=== PATIENT | female | born 1935 | race Two or more races ===

== ENCOUNTER 2016-10-07 21:05 | Inpatient (IN) | payer MEDICAID ==
[~2016-10-07] VITALS: Ht 152.4 cm; Wt 82.9 kg
[~2016-10-07 21:05] MED LIST: ALEN70SO OR; AML5T PO; ASPI81CH43; ATOR20TA50 PO; FURO40TA4 PO; GLIP2.5T28 PO; LISI40TA PO; NIF30XLT PO; PANT40T PO; SUC1LQ PO
[2016-10-07 21:56] LABS: Basophils # (auto) 0 uL; Basophils % (auto) 0.3 % (0.0-2.0); Eosinophils # (auto) 0.1 uL; Eosinophils % (auto) 0.9 % (0.0-7.0); Hematocrit 37.3 % (36.0-46.0); Hemoglobin 12.2 g/dL (12.2-16.2); Lymphocytes # (auto) 1.5 uL; Lymphocytes % (auto) 14.9 % (10.0-50.0); Mean Corpuscular Hemoglobin 31.6 pg (28.0-32.0); Mean Corpuscular Hgb Conc. 32.7 g/dL (32.0-36.0); Mean Corpuscular Volume 96.7 fL (80.0-100.0); Mean Platelet Volume 9.8 fL (7.4-10.4); Monocytes # (auto) 0.5 uL; Monocytes % (auto) 4.8 % (0.0-12.0); Neutrophils # (auto) 7.9 uL; Neutrophils % (auto) 79.1 % (37.0-80.0); Platelet Count (auto) 229 10^3/uL (140-450); Red Cell Distribution Width 13.1 % (11.6-16.0); White Blood Cell 9.9 10^3/uL (4.4-10.8)
[2016-10-07 22:09] LABS: INR 1.02 (0.9-1.15); Partial Thromboplastin Time 25.4 sec (22.64-33.71); Prothrombin Time 10.5 sec (9.37-12.3)
[2016-10-07 22:28] LABS: Albumin 2.8 g/dL (3.4-5.0); Alkaline Phosphatase 95 U/L (45-117); Amylase 133 U/L (25-115); Anion Gap 13 (5-15); Aspartate Aminotransferase 16 U/L (15-37); BUN/Creatinine Ratio 19.9; Bilirubin, Total 0.2 mg/dL (0.2-1.0); Blood Urea Nitrogen 41 mg/dL (7-18); Calcium 8.5 mg/dL (8.5-10.1); Carbon Dioxide 24 mmol/L (21-32); Chloride 106 mmol/L (98-107); GFR African American 30 mL/min; GFR Non-African American 25 mL/min; Glucose 213 mg/dL (74-106); Potassium 4.1 mmol/L (3.5-5.1); Sodium 143 mmol/L (136-145); Total Protein 6.7 g/dL (6.4-8.2)
[2016-10-08] MEDS ORDERED: FLEET ENEMA(ADULT) 135 ML PR ONE (07:00)
[2016-10-08] MEDS ORDERED: DEXTROSE (50%) 50ML SYRG IV PRN (07:00)
[2016-10-08] MEDS ORDERED: ACETAMINOPHEN 325 MG TAB PO PRN (07:00)
[2016-10-08] MEDS: SODIUM CHLORIDE 0.9% 1,000 ML IV SCH ×2 (07:08→21:36)
[2016-10-08] MEDS ORDERED: AML5T PO ×2 (07:08→10:53)
[2016-10-08] MEDS: glipiZIDE 5 MG TAB PO SCH (08:14)
[2016-10-08] MEDS ORDERED: amLODIPine BESYLATE 5 MG TAB PO SCH (10:00)
[2016-10-08] MEDS ORDERED: PANTOPRAZOLE 40 MG TAB PO SCH (10:00)
[2016-10-08] MEDS: NIFEdipine ER 30 MG TAB PO SCH (10:30)
[2016-10-08] MEDS: ENOXAPARIN SOD 30 MG/0.3 ML SYRINGE SC SCH (10:30)
[2016-10-08] MEDS: FUROSEMIDE 40 MG TAB PO SCH (10:30)
[2016-10-08] MEDS: LISINOPRIL 20 MG TAB PO SCH (10:30)
[2016-10-08] MEDS: ACCU-CHEK COMFORT CURVE STRIP VI SCH ×2 (12:07→17:10)
[2016-10-08] MEDS: InsuLIN REG 1unit/0.01ml Soln (100units/ml) SC SCH ×2 (12:07→17:10)
[2016-10-08 16:28] VITALS: BP 142/61
[2016-10-08 17:09] LABS: Urine RBC None Seen /hpf (0 - 4)
[2016-10-08 17:38] LABS: Urine Bilirubin Negative (Negative); Urine Blood Negative /uL (Negative); Urine Color Yellow (Yellow); Urine Glucose TRACE mg/dL (Normal); Urine Hyaline Cast FEW /lpf (0 - 2); Urine Ketone Negative (Negative); Urine Mucus FEW (None Seen); Urine Nitrite Negative (Negative); Urine Squamous Epithelial Cell FEW /hpf (<5); Urine Urobilinogen Normal (Negative); Urine pH 5.5 (5.0-8.0)
[2016-10-08] MEDS: Boost Glucose Control 8 Ounces PO SCH ×2 (18:00→21:57)
[2016-10-08 20:53] VITALS: BP 142/67
[2016-10-08] MEDS: PANTOPRAZOLE 40 MG TAB PO SCH (21:57)
[2016-10-08] MEDS: ATORVASTATIN 20 MG TAB PO SCH (21:57)
[2016-10-09] MEDS: ACCU-CHEK COMFORT CURVE STRIP VI SCH ×4 (00:10→17:07)
[2016-10-09 05:17] VITALS: BP 135/57
[2016-10-09] MEDS: InsuLIN REG 1unit/0.01ml Soln (100units/ml) SC SCH ×4 (06:44→17:07)
[2016-10-09] MEDS: Boost Glucose Control 8 Ounces PO SCH ×4 (06:44→22:00)
[2016-10-09] MEDS: glipiZIDE 5 MG TAB PO SCH (07:04)
[2016-10-09 07:24] LABS: Basophils # (auto) 0 uL; Basophils % (auto) 0.1 % (0.0-2.0); Eosinophils # (auto) 0.1 uL; Eosinophils % (auto) 1.8 % (0.0-7.0); Lymphocytes # (auto) 1.1 uL; Lymphocytes % (auto) 20.3 % (10.0-50.0); Mean Corpuscular Hemoglobin 32.1 pg (28.0-32.0); Mean Corpuscular Hgb Conc. 33.5 g/dL (32.0-36.0); Mean Corpuscular Volume 95.9 fL (80.0-100.0); Mean Platelet Volume 9.7 fL (7.4-10.4); Monocytes # (auto) 0.4 uL; Monocytes % (auto) 6.8 % (0.0-12.0); Platelet Count (auto) 129 10^3/uL (140-450); Red Cell Distribution Width 13.4 % (11.6-16.0); White Blood Cell 5.6 10^3/uL (4.4-10.8)
[2016-10-09 07:25] LABS: Albumin 2.2 g/dL (3.4-5.0); BUN/Creatinine Ratio 25.2; Bilirubin, Total 0.3 mg/dL (0.2-1.0); Calcium 8.2 mg/dL (8.5-10.1); Potassium 3.8 mmol/L (3.5-5.1); Total Protein 5.2 g/dL (6.4-8.2)
[2016-10-09 08:00] VITALS: BP_SYST 153; BP_SYST 166; BP_DIAS 55; BP_DIAS 61
[2016-10-09] MEDS: LISINOPRIL 20 MG TAB PO SCH (10:29)
[2016-10-09] MEDS: PANTOPRAZOLE 40 MG TAB PO SCH ×2 (10:30→22:39)
[2016-10-09] MEDS: FUROSEMIDE 40 MG TAB PO SCH (10:30)
[2016-10-09] MEDS: NIFEdipine ER 30 MG TAB PO SCH (10:30)
[2016-10-09] MEDS: ENOXAPARIN SOD 30 MG/0.3 ML SYRINGE SC SCH (10:30)
[2016-10-09 12:30] VITALS: BP_SYST 174; BP_SYST 183; BP_DIAS 61; BP_DIAS 67
[2016-10-09] MEDS: cloNIDine HCL 0.1 MG TAB PO PRN (16:27)
[2016-10-09] MEDS: SODIUM CHLORIDE 0.9% 1,000 ML IV SCH (16:28)
[2016-10-09 17:00] VITALS: BP 175/68
[2016-10-09 20:00] VITALS: BP 176/63
[2016-10-09 22:00] VITALS: BP 176/63
[2016-10-09] MEDS: ATORVASTATIN 20 MG TAB PO SCH (22:39)
[2016-10-09] MEDS: LACTULOSE 20Gm/30ML SOLN PO PRN (22:41)
[2016-10-10] MEDS: ACCU-CHEK COMFORT CURVE STRIP VI SCH ×4 (00:19→18:28)
[2016-10-10] MEDS: InsuLIN REG 1unit/0.01ml Soln (100units/ml) SC SCH ×4 (00:25→18:00)
[2016-10-10 05:30] VITALS: BP 138/59
[2016-10-10] MEDS: Boost Glucose Control 8 Ounces PO SCH ×4 (06:00→22:00)
[2016-10-10 06:20] LABS: Basophils # (auto) 0 uL; Basophils % (auto) 0.5 % (0.0-2.0); Eosinophils # (auto) 0.1 uL; Eosinophils % (auto) 2.3 % (0.0-7.0); Hematocrit 29.8 % (36.0-46.0); Hemoglobin 9.9 g/dL (12.2-16.2); Lymphocytes # (auto) 1.3 uL; Mean Corpuscular Hemoglobin 31.7 pg (28.0-32.0); Mean Corpuscular Hgb Conc. 33.2 g/dL (32.0-36.0); Mean Corpuscular Volume 95.6 fL (80.0-100.0); Mean Platelet Volume 10.1 fL (7.4-10.4); Monocytes # (auto) 0.4 uL; Monocytes % (auto) 7.3 % (0.0-12.0); Neutrophils # (auto) 3.3 uL; Neutrophils % (auto) 64.9 % (37.0-80.0); Platelet Count (auto) 132 10^3/uL (140-450); Red Cell Distribution Width 13.6 % (11.6-16.0); White Blood Cell 5.1 10^3/uL (4.4-10.8)
[2016-10-10 06:49] LABS: Chloride 110 mmol/L (98-107); Potassium 3.5 mmol/L (3.5-5.1); Sodium 145 mmol/L (136-145)
[2016-10-10 07:04] LABS: Albumin 2.1 g/dL (3.4-5.0); Alkaline Phosphatase 72 U/L (45-117); Anion Gap 9 (5-15); Aspartate Aminotransferase 9 U/L (15-37); BUN/Creatinine Ratio 22.1; Bilirubin, Total < 0.1 mg/dL (0.2-1.0); Blood Urea Nitrogen 33 mg/dL (7-18); Calcium 7.8 mg/dL (8.5-10.1); Carbon Dioxide 26 mmol/L (21-32); GFR African American 43 mL/min; GFR Non-African American 36 mL/min; Glucose 83 mg/dL (74-106); Total Protein 5.1 g/dL (6.4-8.2)
[2016-10-10] MEDS: glipiZIDE 5 MG TAB PO SCH (07:08)
[2016-10-10] MEDS: SODIUM CHLORIDE 0.9% 1,000 ML IV SCH (07:57)
[2016-10-10 08:00] VITALS: BP 137/69
[2016-10-10 09:12] VITALS: BP 156/69
[2016-10-10] MEDS: ENOXAPARIN SOD 30 MG/0.3 ML SYRINGE SC SCH (10:00)
[2016-10-10] MEDS: PANTOPRAZOLE 40 MG TAB PO SCH ×2 (10:00→21:55)
[2016-10-10] MEDS: LISINOPRIL 20 MG TAB PO SCH (10:00)
[2016-10-10] MEDS: FUROSEMIDE 40 MG TAB PO SCH (10:00)
[2016-10-10] MEDS: NIFEdipine ER 30 MG TAB PO SCH (10:00)
[2016-10-10] MEDS: ONDANSETRON HCL 4 MG/2 ML VIAL IV PRN (10:50)
[2016-10-10] MEDS: HYDROcodone-ACET 5/325MG TAB PO PRN ×3 (12:55→23:03)
[2016-10-10] MEDS ORDERED: MORPHINE SULF INJ 2 MG/ML SYRINGE 1ML ONE (15:39)
[2016-10-10 16:04] VITALS: BP 111/56
[2016-10-10 20:41] VITALS: BP 135/50
[2016-10-10] MEDS: LACTULOSE 20Gm/30ML SOLN PO PRN (21:55)
[2016-10-10] MEDS: ATORVASTATIN 20 MG TAB PO SCH (21:56)
[2016-10-11] VITALS (7 sets, daily range): BP systolic 78–161; BP diastolic 34–68
[2016-10-11] MEDS: SODIUM CHLORIDE 0.9% 1,000 ML IV SCH ×2 (01:26→17:40)
[2016-10-11] MEDS: ONDANSETRON HCL 4 MG/2 ML VIAL IV PRN ×3 (05:00→16:41)
[2016-10-11] MEDS: MORPHINE SULF INJ 2 MG/ML SYRINGE 1ML IV PRN ×4 (05:00→21:28)
[2016-10-11] MEDS: cloNIDine HCL 0.1 MG TAB PO PRN (05:01)
[2016-10-11] MEDS: ACCU-CHEK COMFORT CURVE STRIP VI SCH ×4 (06:00→17:39)
[2016-10-11] MEDS: InsuLIN REG 1unit/0.01ml Soln (100units/ml) SC SCH ×4 (06:00→17:39)
[2016-10-11] MEDS: Boost Glucose Control 8 Ounces PO SCH ×4 (06:00→22:00)
[2016-10-11 06:27] LABS: Basophils # (auto) 0 uL; Eosinophils # (auto) 0 uL; Hematocrit 33.7 % (36.0-46.0); Hemoglobin 11.4 g/dL (12.2-16.2); Lymphocytes # (auto) 0.9 uL; Lymphocytes % (auto) 5.6 % (10.0-50.0); Mean Corpuscular Hemoglobin 32.5 pg (28.0-32.0); Mean Corpuscular Hgb Conc. 33.7 g/dL (32.0-36.0); Mean Corpuscular Volume 96.4 fL (80.0-100.0); Monocytes # (auto) 0.5 uL; Monocytes % (auto) 3.3 % (0.0-12.0); Neutrophils # (auto) 14.9 uL; Neutrophils % (auto) 91.1 % (37.0-80.0); Platelet Count (auto) 181 10^3/uL (140-450); Red Cell Distribution Width 13.5 % (11.6-16.0); White Blood Cell 16.4 10^3/uL (4.4-10.8)
[2016-10-11 06:57] LABS: Potassium 3.7 mmol/L (3.5-5.1)
[2016-10-11] MEDS: glipiZIDE 5 MG TAB PO SCH (07:00)
[2016-10-11 07:02] LABS: Albumin 2.4 g/dL (3.4-5.0); BUN/Creatinine Ratio 20.2; Calcium 8.2 mg/dL (8.5-10.1)
[2016-10-11 07:05] LABS: Bilirubin, Total 0.4 mg/dL (0.2-1.0); Total Protein 5.9 g/dL (6.4-8.2)
[2016-10-11] MEDS: FUROSEMIDE 40 MG TAB PO SCH (10:00)
[2016-10-11] MEDS: NIFEdipine ER 30 MG TAB PO SCH (10:00)
[2016-10-11] MEDS: PANTOPRAZOLE 40 MG TAB PO SCH ×2 (10:21→22:00)
[2016-10-11] MEDS: LISINOPRIL 20 MG TAB PO SCH (10:22)
[2016-10-11] MEDS: ENOXAPARIN SOD 30 MG/0.3 ML SYRINGE SC SCH (10:22)
[2016-10-11] MEDS: HYDROcodone-ACET 5/325MG TAB PO PRN (14:15)
[2016-10-11] MEDS ORDERED: VANCOMYCIN 750 MG in D5W 5% 250 ML IV SCH (17:00)
[2016-10-11] MEDS ORDERED: PIPERACILLIN-TAZOB 2.25GM 50 ML IV ONE (18:00)
[2016-10-11] MEDS: LACTULOSE 20Gm/30ML SOLN PO PRN (18:11)
[2016-10-11] MEDS ORDERED: VANCOMYCIN 1GM/250ML D5W 250 ML IV ONE (18:15)
[2016-10-11 19:33] LABS: Urine Bilirubin Negative (Negative); Urine Blood Negative /uL (Negative); Urine Color Yellow (Yellow); Urine Ketone Negative (Negative); Urine Nitrite Negative (Negative); Urine RBC 1 /hpf (0 - 4); Urine Squamous Epithelial Cell FEW /hpf (<5); Urine Urobilinogen Normal (Negative); Urine pH 5.5 (5.0-8.0)
[2016-10-11 19:36] LABS: Urine Glucose 1+ mg/dL (Normal)
[2016-10-11] MEDS: ATORVASTATIN 20 MG TAB PO SCH (22:00)
[2016-10-12] MEDS: ACCU-CHEK COMFORT CURVE STRIP VI SCH ×5 (00:26→22:01)
[2016-10-12] MEDS: InsuLIN REG 1unit/0.01ml Soln (100units/ml) SC SCH ×6 (00:37→22:17)
[2016-10-12] MEDS: PIPERACILLIN-TAZOB 2.25GM 50 ML IV SCH ×4 (00:51→17:51)
[2016-10-12] MEDS: ONDANSETRON HCL 4 MG/2 ML VIAL IV PRN ×3 (04:02→12:58)
[2016-10-12] MEDS: MORPHINE SULF INJ 2 MG/ML SYRINGE 1ML IV PRN ×2 (04:02→11:19)
[2016-10-12 05:39] VITALS: BP 155/74
[2016-10-12 05:43] LABS: Hematocrit 34.9 % (36.0-46.0); Hemoglobin 11.4 g/dL (12.2-16.2); Mean Corpuscular Hemoglobin 31.8 pg (28.0-32.0); Mean Corpuscular Hgb Conc. 32.8 g/dL (32.0-36.0); Mean Corpuscular Volume 96.8 fL (80.0-100.0); Mean Platelet Volume 10.4 fL (7.4-10.4); Platelet Count (auto) 174 10^3/uL (140-450); Red Cell Distribution Width 13.5 % (11.6-16.0); SUSPECT VIEW TRANSMISSION; White Blood Cell 16.9 10^3/uL (4.4-10.8)
[2016-10-12 06:00] LABS: Promyelocytes % 0; Reactive Lymphocytes 0
[2016-10-12] MEDS: Boost Glucose Control 8 Ounces PO SCH ×4 (06:00→22:00)
[2016-10-12] MEDS ORDERED: VANCOMYCIN PER PHARMACY 0 MG IV SCH (06:00)
[2016-10-12 06:03] LABS: BUN/Creatinine Ratio 21.6; Magnesium 1.7 mg/dL (1.6-2.6); Potassium 4.1 mmol/L (3.5-5.1)
[2016-10-12] MEDS: glipiZIDE 5 MG TAB PO SCH (06:12)
[2016-10-12 06:24] LABS: Hypersegmented Neutrophils Present; Metamyelocytes % 1; Myelocytes % 1
[2016-10-12 06:25] LABS: Platelet Estimate Adequate; RBC Morphology Normal
[2016-10-12] MEDS: HYDROcodone-ACET 5/325MG TAB PO PRN ×2 (07:48→18:47)
[2016-10-12 08:00] VITALS: BP 148/64
[2016-10-12] MEDS ORDERED: NALOXONE HCL 0.4 MG/ML VIAL ONE (08:15)
[2016-10-12] MEDS ORDERED: FLUMAZENIL 0.1 MG/ML INJ 10ML MDV IV ONE (08:15)
[2016-10-12] MEDS ORDERED: LIDOCAINE VISCOUS 2% 15ML UD ONE (08:15)
[2016-10-12] MEDS ORDERED: SODIUM CHLORIDE LOCK 10 ML ONE (08:15)
[2016-10-12] MEDS ORDERED: diphenhdrAMINE HCL 50 MG/1 ML VL ONE (08:16)
[2016-10-12] MEDS ORDERED: MIDAZOLAM HCL 5 MG/ML-1ML VIAL ONE (08:16)
[2016-10-12] MEDS ORDERED: fentaNYL CITRATE 100 MCG/2 ML VL ONE (08:16)
[2016-10-12 09:00] VITALS: BP 148/64
[2016-10-12] MEDS: PANTOPRAZOLE 40 MG TAB PO SCH ×2 (10:04→22:01)
[2016-10-12] MEDS: NIFEdipine ER 30 MG TAB PO SCH (10:04)
[2016-10-12] MEDS: LISINOPRIL 20 MG TAB PO SCH (10:05)
[2016-10-12] MEDS: ENOXAPARIN SOD 30 MG/0.3 ML SYRINGE SC SCH (10:05)
[2016-10-12] MEDS: SODIUM CHLORIDE 0.9% 1,000 ML IV SCH (10:55)
[2016-10-12 12:47] VITALS: BP 152/73
[2016-10-12] MEDS ORDERED: LIDOCAINE VISCOUS 2% 15ML UD MT ONE (15:14)
[2016-10-12] MEDS ORDERED: MIDAZOLAM HCL 5 MG/ML-1ML VIAL IV ONE ×6 (15:17→15:52)
[2016-10-12] MEDS ORDERED: fentaNYL CITRATE 100 MCG/2 ML VL IV ONE ×5 (15:17→15:46)
[2016-10-12] MEDS ORDERED: diphenhdrAMINE HCL 50 MG/1 ML VL IV ONE ×2 (15:47→15:52)
[2016-10-12] MEDS: METOCLOPRAMIDE HCL 5MG/ml INJ 2ml VIAL IV SCH ×2 (16:21→22:01)
[2016-10-12 16:58] VITALS: BP 120/71
[2016-10-12] MEDS ORDERED: VANCOMYCIN 1GM/250ML D5W 250 ML IV SCH (17:00)
[2016-10-12] MEDS: SUCRALFATE 1 GM/10 ML ORAL SUSP PO SCH ×2 (17:09→22:01)
[2016-10-12 22:00] VITALS: BP 137/65
[2016-10-12] MEDS: ATORVASTATIN 20 MG TAB PO SCH (22:01)
[2016-10-13] MEDS: PIPERACILLIN-TAZOB 2.25GM 50 ML IV SCH ×2 (00:53→05:32)
[2016-10-13] MEDS: SODIUM CHLORIDE 0.9% 1,000 ML IV SCH (03:26)
[2016-10-13] MEDS: HYDROcodone-ACET 5/325MG TAB PO PRN (04:24)
[2016-10-13] MEDS: METOCLOPRAMIDE HCL 5MG/ml INJ 2ml VIAL IV SCH ×2 (05:39→13:58)
[2016-10-13 05:44] LABS: Hematocrit 32.7 % (36.0-46.0); Mean Corpuscular Hemoglobin 32.2 pg (28.0-32.0); Mean Corpuscular Hgb Conc. 33.5 g/dL (32.0-36.0); Mean Corpuscular Volume 96.1 fL (80.0-100.0); Mean Platelet Volume 10.7 fL (7.4-10.4); Platelet Count (auto) 178 10^3/uL (140-450); Red Cell Distribution Width 13.7 % (11.6-16.0); SUSPECT VIEW TRANSMISSION; White Blood Cell 9.4 10^3/uL (4.4-10.8)
[2016-10-13] MEDS: ACCU-CHEK COMFORT CURVE STRIP VI SCH ×3 (05:49→18:00)
[2016-10-13] MEDS: Boost Glucose Control 8 Ounces PO SCH ×4 (05:49→21:43)
[2016-10-13] MEDS: InsuLIN REG 1unit/0.01ml Soln (100units/ml) SC SCH ×3 (05:53→18:00)
[2016-10-13 05:56] LABS: Prothrombin Time 12.2 sec (9.37-12.3)
[2016-10-13 06:02] LABS: Albumin 1.9 g/dL (3.4-5.0); Calcium 7.8 mg/dL (8.5-10.1); Magnesium 1.7 mg/dL (1.6-2.6); Potassium 4.2 mmol/L (3.5-5.1)
[2016-10-13 06:07] LABS: BUN/Creatinine Ratio 22.3; Bilirubin, Total 0.5 mg/dL (0.2-1.0); Total Protein 5.4 g/dL (6.4-8.2)
[2016-10-13 06:11] VITALS: BP 139/59
[2016-10-13 06:14] LABS: Metamyelocytes % 0; Myelocytes % 0; Promyelocytes % 0; Reactive Lymphocytes 0
[2016-10-13 06:35] LABS: INR 1.18 (0.9-1.15)
[2016-10-13] MEDS: SUCRALFATE 1 GM/10 ML ORAL SUSP PO SCH ×4 (06:40→21:43)
[2016-10-13] MEDS: glipiZIDE 5 MG TAB PO SCH (06:40)
[2016-10-13 07:57] LABS: Platelet Estimate Adequate; RBC Morphology Normal
[2016-10-13 09:00] VITALS: BP 117/58
[2016-10-13] MEDS: MORPHINE SULF INJ 2 MG/ML SYRINGE 1ML IV PRN (09:00)
[2016-10-13] MEDS: ENOXAPARIN SOD 30 MG/0.3 ML SYRINGE SC SCH (09:09)
[2016-10-13] MEDS: LACTULOSE 20Gm/30ML SOLN PO PRN (09:09)
[2016-10-13] MEDS: PANTOPRAZOLE 40 MG TAB PO SCH ×2 (09:09→21:43)
[2016-10-13] MEDS: LISINOPRIL 20 MG TAB PO SCH (09:10)
[2016-10-13] MEDS: NIFEdipine ER 30 MG TAB PO SCH (09:10)
[2016-10-13] MEDS ORDERED: SODIUM CHLORIDE 0.9% 1,000 ML IV ONE (10:30)
[2016-10-13] MEDS: cefTRIAXone 1GM/50ML D5W 50 ML IV SCH (10:48)
[2016-10-13] MEDS: LACTULOSE 20Gm/30ML SOLN PO SCH ×2 (11:58→17:44)
[2016-10-13 13:02] VITALS: BP 116/51
[2016-10-13] MEDS ORDERED: SOD CHL 0.9%/ KCL 20MEQ 1,000 ML IV ONE (15:00)
[2016-10-13] MEDS ORDERED: GASTROGRAFIN 120 ML SOL ONE (15:15)
[2016-10-13 17:00] VITALS: BP 125/57
[2016-10-13 20:00] VITALS: BP 139/54
[2016-10-13] MEDS: ATORVASTATIN 20 MG TAB PO SCH (21:43)
[2016-10-13 22:00] VITALS: BP 139/54
[2016-10-14] VITALS (15 sets, daily range): BP systolic 104–136; BP diastolic 51–62
[2016-10-14] MEDS: ACCU-CHEK COMFORT CURVE STRIP VI SCH ×4 (00:25→18:00)
[2016-10-14] MEDS: LACTULOSE 20Gm/30ML SOLN PO SCH ×4 (05:51→18:00)
[2016-10-14] MEDS: glipiZIDE 5 MG TAB PO SCH (05:52)
[2016-10-14] MEDS: InsuLIN REG 1unit/0.01ml Soln (100units/ml) SC SCH ×4 (05:52→18:00)
[2016-10-14] MEDS: Boost Glucose Control 8 Ounces PO SCH ×4 (05:52→22:00)
[2016-10-14 06:09] LABS: BUN/Creatinine Ratio 19.5; Calcium 7.8 mg/dL (8.5-10.1); Potassium 4.3 mmol/L (3.5-5.1)
[2016-10-14] MEDS: SUCRALFATE 1 GM/10 ML ORAL SUSP PO SCH (06:20)
[2016-10-14] MEDS: ENOXAPARIN SOD 30 MG/0.3 ML SYRINGE SC SCH (09:13)
[2016-10-14] MEDS: SODIUM CHLORIDE 0.9% 1,000 ML IV SCH (09:13)
[2016-10-14] MEDS: PANTOPRAZOLE 40 MG TAB PO SCH (09:13)
[2016-10-14] MEDS: HYDROmorphone HCL 2 MG/ML VL IV PRN (09:15)
[2016-10-14] MEDS: cefTRIAXone 1GM/50ML D5W 50 ML IV SCH (09:55)
[2016-10-14 10:07] LABS: Urine Bilirubin Negative (Negative); Urine Blood Negative /uL (Negative); Urine Color Yellow (Yellow); Urine Glucose TRACE mg/dL (Normal); Urine Ketone Negative (Negative); Urine Nitrite Negative (Negative); Urine RBC 4 /hpf (0 - 4); Urine Squamous Epithelial Cell FEW /hpf (<5); Urine Urobilinogen Normal (Negative)
[2016-10-14] MEDS ORDERED: LEVOFLOXACIN 500MG 100 ML IV ONE (10:15)
[2016-10-14] MEDS ORDERED: NITROGLYCERIN 0.4 MG SL TAB SL PRN ×2 (10:30)
[2016-10-14] MEDS ORDERED: MORPHINE SULF INJ 2 MG/ML SYRINGE 1ML IV PRN ×2 (10:30)
[2016-10-14 12:43] LABS: Hematocrit 31.1 % (36.0-46.0); Hemoglobin 10.5 g/dL (12.2-16.2); Mean Corpuscular Hemoglobin 32.3 pg (28.0-32.0); Mean Corpuscular Hgb Conc. 33.8 g/dL (32.0-36.0); Mean Corpuscular Volume 95.6 fL (80.0-100.0); Mean Platelet Volume 10.4 fL (7.4-10.4); Platelet Count (auto) 172 10^3/uL (140-450); Red Cell Distribution Width 14.1 % (11.6-16.0); SUSPECT VIEW TRANSMISSION; White Blood Cell 12.9 10^3/uL (4.4-10.8)
[2016-10-14 12:48] LABS: Metamyelocytes % 0; Myelocytes % 0; Promyelocytes % 0; Reactive Lymphocytes 0
[2016-10-14] MEDS ORDERED: SODIUM CHLORIDE 0.9% 500 ML IV ONE (13:30)
[2016-10-14 13:52] LABS: Platelet Estimate Adequate; RBC Morphology Normal
[2016-10-14] MEDS ORDERED: SODIUM CHLOR 0.9% PF (SALINE LOCK) 10ML VIAL IV SCH (14:00)
[2016-10-14] MEDS: metroNIDAZOLE 500MG/100ML 100 ML IV SCH ×3 (15:03→23:06)
[2016-10-14] MEDS ORDERED: PPN PER PHARMACY 0 ML IV SCH (15:45)
[2016-10-14] MEDS ORDERED: fentaNYL CITRATE 100 MCG/2 ML VL ONE ×3 (15:51→19:07)
[2016-10-14] MEDS ORDERED: ETOMIDATE (2MG/ML) 20ML VIAL IV ONE (15:52)
[2016-10-14] MEDS ORDERED: MIDAZOLAM HCL 1MG/1ML-2 ML VIAL ONE ×2 (15:52→19:11)
[2016-10-14] MEDS ORDERED: DEXAMETHASONE SOD PHOS 10MG/1ML VIAL INJ ONE (15:52)
[2016-10-14] MEDS ORDERED: KETOROLAC TROMETH 60MG/2ML VIAL IM ONE (15:52)
[2016-10-14] MEDS ORDERED: ONDANSETRON HCL 4 MG/2 ML VIAL ONE (15:52)
[2016-10-14] MEDS ORDERED: ROCURONIUM 10MG/ML 10ML VIAL IV ONE (15:53)
[2016-10-14] MEDS ORDERED: POVIDONE IODINE 10 % TOPICAL OINT 30GM TOP ONE (15:55)
[2016-10-14] MEDS ORDERED: ceFAZolin 1GM VL ONE (15:55)
[2016-10-14] MEDS ORDERED: ALBUMIN 5% 250 ML IV ONE (16:01)
[2016-10-14] MEDS ORDERED: FUROSEMIDE 20 MG/2 ML VIAL IV ONE (17:30)
[2016-10-14] MEDS ORDERED: cefTRIAXone SOD 1,000 MG VL ONE (17:38)
[2016-10-14] MEDS ORDERED: SODIUM CHLORIDE 0.9% 1,000 ML IV SCH (20:00)
[2016-10-14] MEDS ORDERED: AMINO ACID INFUSION IN D10W 1,000 ML IV ONE (20:00)
[2016-10-14] MEDS: ATORVASTATIN 20 MG TAB PO SCH (22:00)
[2016-10-15] VITALS (54 sets, daily range): BP systolic 97–149; BP diastolic 6–98
[2016-10-15] MEDS ORDERED: SODIUM BICARBONATE 8.4 % INJ 50ML VIAL IV ONE ×2 (01:00→01:01)
[2016-10-15] MEDS: SODIUM CHLORIDE 0.9% 1,000 ML IV SCH (01:27)
[2016-10-15] MEDS: SODIUM BICARBONATE 50ML VIAL 50 ML in SOD CHL 0.45% 1,000 ML IV SCH ×3 (01:28→01:31)
[2016-10-15] MEDS: HYDROmorphone HCL 2 MG/ML VL IV PRN ×5 (01:44→22:48)
[2016-10-15 03:50] LABS: Basophils # (auto) 0 uL; Eosinophils # (auto) 0 uL; Hematocrit 33.9 % (36.0-46.0); Hemoglobin 11.1 g/dL (12.2-16.2); Lymphocytes # (auto) 0.2 uL; Mean Corpuscular Hemoglobin 30.9 pg (28.0-32.0); Mean Corpuscular Hgb Conc. 32.8 g/dL (32.0-36.0); Mean Corpuscular Volume 94.3 fL (80.0-100.0); Mean Platelet Volume 10.2 fL (7.4-10.4); Monocytes # (auto) 0.1 uL; Monocytes % (auto) 1.6 % (0.0-12.0); Neutrophils # (auto) 7.9 uL; Neutrophils % (auto) 96.4 % (37.0-80.0); Platelet Count (auto) 128 10^3/uL (140-450); Red Cell Distribution Width 16.3 % (11.6-16.0); SUSPECT VIEW TRANSMISSION; White Blood Cell 8.2 10^3/uL (4.4-10.8)
[2016-10-15 04:17] LABS: Albumin 1.6 g/dL (3.4-5.0); BUN/Creatinine Ratio 19.9; Bilirubin, Total 0.3 mg/dL (0.2-1.0); Calcium 7.2 mg/dL (8.5-10.1); Phosphorus 6.3 mg/dL (2.5-4.90); Potassium 4.9 mmol/L (3.5-5.1)
[2016-10-15] MEDS: InsuLIN REG 1unit/0.01ml Soln (100units/ml) SC SCH ×4 (05:09→17:52)
[2016-10-15] MEDS: LACTULOSE 20Gm/30ML SOLN PO SCH ×2 (05:12)
[2016-10-15] MEDS: Boost Glucose Control 8 Ounces PO SCH (05:13)
[2016-10-15] MEDS: ACCU-CHEK COMFORT CURVE STRIP VI SCH ×4 (05:13→17:44)
[2016-10-15] MEDS: LEVOFLOXACIN 250MG 50 ML IV SCH (10:50)
[2016-10-15] MEDS ORDERED: LORazepam 2MG/ML-1ML VIAL ONE (11:06)
[2016-10-15] MEDS: PANTOPRAZOLE SODIUM 40 MG/10 ML VIAL IV SCH ×2 (12:10→22:47)
[2016-10-15] MEDS ORDERED: LIDOCAINE 1% HCL (LOCAL ANESTH.) INJ 20ML MDV ID ONE (12:15)
[2016-10-15] MEDS: metroNIDAZOLE 500MG/100ML 100 ML IV SCH ×2 (14:14→22:47)
[2016-10-15] MEDS: LORazepam 2MG/ML-1ML VIAL IV PRN ×2 (18:15→22:47)
[2016-10-15] MEDS ORDERED: SODIUM CHLORIDE 0.9% 1,000 ML IV SCH (20:00)
[2016-10-15] MEDS ORDERED: CLINIMIX PER PHARMACY IV NR ×6 (20:00)
[2016-10-15] MEDS: SODIUM CHLOR 0.9% PF (SALINE LOCK) 10ML VIAL IV SCH (22:00)
[2016-10-16] VITALS (35 sets, daily range): BP systolic 117–181; BP diastolic 51–82
[2016-10-16] MEDS: InsuLIN REG 1unit/0.01ml Soln (100units/ml) SC SCH ×4 (00:23→17:13)
[2016-10-16] MEDS: ACCU-CHEK COMFORT CURVE STRIP VI SCH ×4 (00:26→17:13)
[2016-10-16 04:24] LABS: Basophils # (auto) 0 uL; Basophils % (auto) 0.1 % (0.0-2.0); Eosinophils # (auto) 0 uL; Hematocrit 34.4 % (36.0-46.0); Hemoglobin 11.4 g/dL (12.2-16.2); Lymphocytes # (auto) 0.4 uL; Lymphocytes % (auto) 3.6 % (10.0-50.0); Mean Corpuscular Hemoglobin 31.1 pg (28.0-32.0); Mean Corpuscular Hgb Conc. 33.3 g/dL (32.0-36.0); Mean Corpuscular Volume 93.4 fL (80.0-100.0); Mean Platelet Volume 10.3 fL (7.4-10.4); Monocytes # (auto) 0.4 uL; Neutrophils # (auto) 9.4 uL; Neutrophils % (auto) 92.3 % (37.0-80.0); Platelet Count (auto) 114 10^3/uL (140-450); Red Cell Distribution Width 16.1 % (11.6-16.0); White Blood Cell 10.1 10^3/uL (4.4-10.8)
[2016-10-16 04:44] LABS: Albumin 1.4 g/dL (3.4-5.0); BUN/Creatinine Ratio 21.4; Bilirubin, Total 0.2 mg/dL (0.2-1.0); Calcium 7.8 mg/dL (8.5-10.1); Potassium 4.4 mmol/L (3.5-5.1); Total Protein 5.1 g/dL (6.4-8.2)
[2016-10-16] MEDS: metroNIDAZOLE 500MG/100ML 100 ML IV SCH ×3 (05:47→22:05)
[2016-10-16] MEDS: SODIUM BICARBONATE 50ML VIAL 50 ML in SOD CHL 0.45% 1,000 ML IV SCH ×2 (05:53→10:27)
[2016-10-16] MEDS ORDERED: TPN PER PHARMACY 0 ML IV SCH (07:00)
[2016-10-16] MEDS: SODIUM CHLOR 0.9% PF (SALINE LOCK) 10ML VIAL IV SCH ×2 (10:21→22:05)
[2016-10-16] MEDS: PANTOPRAZOLE SODIUM 40 MG/10 ML VIAL IV SCH ×2 (10:21→22:05)
[2016-10-16] MEDS: SODIUM CHLORIDE 0.9% 1,000 ML IV SCH ×3 (11:36→21:00)
[2016-10-16] MEDS ORDERED: METOPROLOL TARTRATE 1MG/1ML-5ML VIAL IV SCH (12:00)
[2016-10-16] MEDS: cloNIDine HCL 0.1 MG TAB PO PRN ×3 (15:16→21:06)
[2016-10-16] MEDS: HYDROmorphone HCL 2 MG/ML VL IV PRN (15:25)
[2016-10-16] MEDS: METOPROLOL TARTRATE 1MG/1ML-5ML VIAL IV PRN (18:34)
[2016-10-16] MEDS ORDERED: PPN PER PHARMACY IV NR ×10 (20:00)
[2016-10-16] MEDS ORDERED: TPN PER PHARMACY IV NR ×10 (20:00)
[2016-10-16] MEDS: LORazepam 2MG/ML-1ML VIAL IV PRN (20:54)
[2016-10-17] VITALS (32 sets, daily range): BP systolic 157–188; BP diastolic 58–84
[2016-10-17] MEDS: ACCU-CHEK COMFORT CURVE STRIP VI SCH ×5 (00:27→23:57)
[2016-10-17] MEDS: InsuLIN REG 1unit/0.01ml Soln (100units/ml) SC SCH ×4 (00:30→17:43)
[2016-10-17] MEDS: METOPROLOL TARTRATE 1MG/1ML-5ML VIAL IV PRN (00:39)
[2016-10-17] MEDS: LORazepam 2MG/ML-1ML VIAL IV PRN (02:42)
[2016-10-17 03:55] LABS: Basophils # (auto) 0 uL; Basophils % (auto) 0.1 % (0.0-2.0); Eosinophils # (auto) 0 uL; Hematocrit 34.1 % (36.0-46.0); Hemoglobin 11.2 g/dL (12.2-16.2); Lymphocytes # (auto) 0.5 uL; Lymphocytes % (auto) 5.3 % (10.0-50.0); Mean Corpuscular Hemoglobin 30.8 pg (28.0-32.0); Mean Corpuscular Hgb Conc. 32.9 g/dL (32.0-36.0); Mean Corpuscular Volume 93.7 fL (80.0-100.0); Mean Platelet Volume 10.2 fL (7.4-10.4); Monocytes # (auto) 0.4 uL; Monocytes % (auto) 4.3 % (0.0-12.0); Neutrophils # (auto) 9.1 uL; Neutrophils % (auto) 90.3 % (37.0-80.0); Platelet Count (auto) 90 10^3/uL (140-450); Red Cell Distribution Width 15.7 % (11.6-16.0); White Blood Cell 10.1 10^3/uL (4.4-10.8)
[2016-10-17 05:21] LABS: Albumin 1.4 g/dL (3.4-5.0); BUN/Creatinine Ratio 23.8; Bilirubin, Total 0.2 mg/dL (0.2-1.0); Calcium 7.7 mg/dL (8.5-10.1); Magnesium 2.1 mg/dL (1.6-2.6); Phosphorus 4.5 mg/dL (2.5-4.90); Potassium 3.8 mmol/L (3.5-5.1); Total Protein 4.8 g/dL (6.4-8.2)
[2016-10-17] MEDS: metroNIDAZOLE 500MG/100ML 100 ML IV SCH ×3 (06:09→22:00)
[2016-10-17] MEDS: HYDROmorphone HCL 2 MG/ML VL IV PRN ×2 (06:16→20:09)
[2016-10-17] MEDS: cloNIDine HCL 0.1 MG TAB PO PRN ×4 (07:37→18:23)
[2016-10-17] MEDS: PANTOPRAZOLE SODIUM 40 MG/10 ML VIAL IV SCH ×2 (09:30→22:00)
[2016-10-17] MEDS: LEVOFLOXACIN 250MG 50 ML IV SCH (09:30)
[2016-10-17] MEDS: SODIUM CHLOR 0.9% PF (SALINE LOCK) 10ML VIAL IV SCH ×2 (09:30→22:00)
[2016-10-17] MEDS ORDERED: TPN PER PHARMACY IV NR ×9 (20:00)
[2016-10-17] MEDS: SODIUM CHLORIDE 0.9% 1,000 ML IV SCH (21:00)
[2016-10-18] VITALS (21 sets, daily range): BP systolic 150–188; BP diastolic 61–91
[2016-10-18] MEDS: cloNIDine HCL 0.1 MG TAB PO PRN ×2 (00:05→06:10)
[2016-10-18] MEDS: InsuLIN REG 1unit/0.01ml Soln (100units/ml) SC SCH ×4 (00:23→18:30)
[2016-10-18 04:38] LABS: Basophils # (auto) 0 uL; Basophils % (auto) 0.1 % (0.0-2.0); Eosinophils # (auto) 0 uL; Eosinophils % (auto) 0.3 % (0.0-7.0); Hematocrit 35.7 % (36.0-46.0); Hemoglobin 11.7 g/dL (12.2-16.2); Lymphocytes # (auto) 0.4 uL; Lymphocytes % (auto) 5.7 % (10.0-50.0); Mean Corpuscular Hemoglobin 30.8 pg (28.0-32.0); Mean Corpuscular Hgb Conc. 32.8 g/dL (32.0-36.0); Mean Corpuscular Volume 93.7 fL (80.0-100.0); Monocytes # (auto) 0.4 uL; Monocytes % (auto) 4.8 % (0.0-12.0); Neutrophils # (auto) 6.9 uL; Neutrophils % (auto) 89.1 % (37.0-80.0); Platelet Count (auto) 86 10^3/uL (140-450); Red Cell Distribution Width 15.4 % (11.6-16.0); White Blood Cell 7.8 10^3/uL (4.4-10.8)
[2016-10-18 05:02] LABS: Albumin 1.3 g/dL (3.4-5.0); BUN/Creatinine Ratio 30.8; Bilirubin, Total 0.2 mg/dL (0.2-1.0); Calcium 7.7 mg/dL (8.5-10.1); Magnesium 1.9 mg/dL (1.6-2.6); Phosphorus 3.4 mg/dL (2.5-4.90); Potassium 3.4 mmol/L (3.5-5.1); Total Protein 4.6 g/dL (6.4-8.2)
[2016-10-18] MEDS: HYDROmorphone HCL 2 MG/ML VL IV PRN ×3 (05:23→22:13)
[2016-10-18] MEDS: metroNIDAZOLE 500MG/100ML 100 ML IV SCH ×3 (05:32→22:12)
[2016-10-18] MEDS: ACCU-CHEK COMFORT CURVE STRIP VI SCH ×4 (06:09→23:56)
[2016-10-18] MEDS ORDERED: POTASSIUM CHL 20MEQ/100ML 100 ML IV ONE (08:00)
[2016-10-18] MEDS: PANTOPRAZOLE SODIUM 40 MG/10 ML VIAL IV SCH ×2 (09:28→22:12)
[2016-10-18] MEDS: SODIUM CHLOR 0.9% PF (SALINE LOCK) 10ML VIAL IV SCH ×2 (09:28→22:12)
[2016-10-18] MEDS: ENALAPRILAT 1.25 MG/ML-1ML VIAL IV PRN ×2 (10:23→18:48)
[2016-10-18] MEDS: cloNIDine 0.1 mg/24hr 7 DAY PATCH TD SCH (14:22)
[2016-10-18] MEDS ORDERED: TPN PER PHARMACY IV NR ×10 (20:00)
[2016-10-18] MEDS: SODIUM CHLORIDE 0.9% 1,000 ML IV SCH (23:57)
[2016-10-19] VITALS (7 sets, daily range): BP systolic 154–186; BP diastolic 65–87
[2016-10-19] MEDS: InsuLIN REG 1unit/0.01ml Soln (100units/ml) SC SCH ×5 (00:10→17:54)
[2016-10-19] MEDS: metroNIDAZOLE 500MG/100ML 100 ML IV SCH ×3 (05:00→21:54)
[2016-10-19] MEDS: ACCU-CHEK COMFORT CURVE STRIP VI SCH ×4 (05:01→23:46)
[2016-10-19] MEDS: ENALAPRILAT 1.25 MG/ML-1ML VIAL IV PRN (05:09)
[2016-10-19 06:51] LABS: Albumin 1.4 g/dL (3.4-5.0); BUN/Creatinine Ratio 33.6; Bilirubin, Total 0.4 mg/dL (0.2-1.0); Calcium 7.7 mg/dL (8.5-10.1); Phosphorus 2.6 mg/dL (2.5-4.90); Potassium 3.5 mmol/L (3.5-5.1); Total Protein 4.7 g/dL (6.4-8.2)
[2016-10-19] MEDS ORDERED: POTASSIUM PHOSP 22MEQ(15MMOLE) in NS 100 ML IV ONE (08:00)
[2016-10-19] MEDS: POTASSIUM CHL 20MEQ/100ML 100 ML IV SCH ×2 (09:45→11:45)
[2016-10-19] MEDS: LEVOFLOXACIN 250MG 50 ML IV SCH (09:48)
[2016-10-19] MEDS: PANTOPRAZOLE SODIUM 40 MG/10 ML VIAL IV SCH ×2 (09:49→21:54)
[2016-10-19] MEDS: cloNIDine 0.1 mg/24hr 7 DAY PATCH TD SCH (09:51)
[2016-10-19] MEDS: SODIUM CHLOR 0.9% PF (SALINE LOCK) 10ML VIAL IV SCH ×2 (10:00→21:54)
[2016-10-19] MEDS ORDERED: cloNIDine 0.1 mg/24hr 7 DAY PATCH TD SCH (10:00)
[2016-10-19] MEDS: ALBUMIN 25% 100 ML IV SCH ×2 (10:00→23:46)
[2016-10-19] MEDS: hydrALAZINE HCL 20 MG/ML VL IV PRN ×2 (15:36→21:55)
[2016-10-19] MEDS: HYDROmorphone HCL 2 MG/ML VL IV PRN (16:10)
[2016-10-19] MEDS ORDERED: TPN PER PHARMACY IV NR ×10 (20:00)
[2016-10-19] MEDS: SODIUM CHLORIDE 0.9% 1,000 ML IV SCH (23:46)
[2016-10-20] MEDS: InsuLIN REG 1unit/0.01ml Soln (100units/ml) SC SCH ×4 (00:20→18:00)
[2016-10-20 04:00] VITALS: BP 184/78
[2016-10-20] MEDS: ACCU-CHEK COMFORT CURVE STRIP VI SCH ×3 (05:52→18:00)
[2016-10-20] MEDS: metroNIDAZOLE 500MG/100ML 100 ML IV SCH ×3 (05:56→21:53)
[2016-10-20] MEDS: hydrALAZINE HCL 20 MG/ML VL IV PRN ×3 (06:02→16:22)
[2016-10-20] MEDS: HYDROmorphone HCL 2 MG/ML VL IV PRN ×2 (06:27→12:00)
[2016-10-20 06:45] LABS: Albumin 2.1 g/dL (3.4-5.0); BUN/Creatinine Ratio 38.3; Calcium 7.9 mg/dL (8.5-10.1); Magnesium 1.8 mg/dL (1.6-2.6); Phosphorus 2.5 mg/dL (2.5-4.90); Potassium 3.9 mmol/L (3.5-5.1)
[2016-10-20 06:47] LABS: Bilirubin, Total 0.5 mg/dL (0.2-1.0); Total Protein 4.7 g/dL (6.4-8.2)
[2016-10-20 08:00] VITALS: BP 129/64
[2016-10-20] MEDS: SODIUM CHLOR 0.9% PF (SALINE LOCK) 10ML VIAL IV SCH ×2 (10:07→22:00)
[2016-10-20] MEDS: PANTOPRAZOLE SODIUM 40 MG/10 ML VIAL IV SCH ×2 (10:07→21:53)
[2016-10-20] MEDS: ALBUMIN 25% 100 ML IV SCH ×2 (10:08→21:56)
[2016-10-20 12:00] VITALS: BP 198/81
[2016-10-20 16:00] VITALS: BP 176/75
[2016-10-20] MEDS: ONDANSETRON HCL 4 MG/2 ML VIAL IV PRN (16:22)
[2016-10-20 16:49] VITALS: BP 130/54
[2016-10-20] MEDS: SODIUM CHLORIDE 0.9% 1,000 ML IV SCH (18:45)
[2016-10-20 20:00] VITALS: BP 151/58
[2016-10-20] MEDS ORDERED: TPN PER PHARMACY IV NR ×10 (20:00)
[2016-10-21] VITALS (7 sets, daily range): BP systolic 149–190; BP diastolic 61–98
[2016-10-21] MEDS: hydrALAZINE HCL 20 MG/ML VL IV PRN ×3 (00:10→17:26)
[2016-10-21] MEDS: InsuLIN REG 1unit/0.01ml Soln (100units/ml) SC SCH ×4 (06:00→18:27)
[2016-10-21] MEDS: ACCU-CHEK COMFORT CURVE STRIP VI SCH ×4 (06:00→18:27)
[2016-10-21] MEDS: metroNIDAZOLE 500MG/100ML 100 ML IV SCH ×3 (06:00→22:43)
[2016-10-21 06:26] LABS: Basophils # (auto) 0 uL; Eosinophils # (auto) 0.1 uL; Eosinophils % (auto) 0.9 % (0.0-7.0); Hematocrit 32.5 % (36.0-46.0); Hemoglobin 10.9 g/dL (12.2-16.2); Lymphocytes # (auto) 0.4 uL; Lymphocytes % (auto) 3.6 % (10.0-50.0); Mean Corpuscular Hemoglobin 31.2 pg (28.0-32.0); Mean Corpuscular Hgb Conc. 33.5 g/dL (32.0-36.0); Mean Platelet Volume 9.3 fL (7.4-10.4); Monocytes # (auto) 0.6 uL; Monocytes % (auto) 5.2 % (0.0-12.0); Neutrophils # (auto) 10.4 uL; Neutrophils % (auto) 90.3 % (37.0-80.0); Platelet Count (auto) 152 10^3/uL (140-450); Red Cell Distribution Width 15.8 % (11.6-16.0); White Blood Cell 11.6 10^3/uL (4.4-10.8)
[2016-10-21 06:36] LABS: Albumin 2.7 g/dL (3.4-5.0); Calcium 6.5 mg/dL (8.5-10.1); Potassium 4.8 mmol/L (3.5-5.1)
[2016-10-21 06:39] LABS: BUN/Creatinine Ratio 40.1; Bilirubin, Total 0.5 mg/dL (0.2-1.0); Phosphorus 3.4 mg/dL (2.5-4.90)
[2016-10-21 06:46] LABS: INR 1.63 (0.9-1.15); Prothrombin Time 17.6 sec (9.37-12.3)
[2016-10-21] MEDS ORDERED: CALCIUM GLUC 4.65 MEQ/10ML 4.65 MEQ in NS 0.9% 50 ML IV ONE (08:00)
[2016-10-21] MEDS: LORazepam 2MG/ML-1ML VIAL IV PRN ×2 (08:16→23:50)
[2016-10-21] MEDS: ALBUMIN 25% 100 ML IV SCH ×3 (09:49→23:17)
[2016-10-21] MEDS: LEVOFLOXACIN 250MG 50 ML IV SCH (09:49)
[2016-10-21] MEDS: PANTOPRAZOLE SODIUM 40 MG/10 ML VIAL IV SCH ×2 (09:50→22:43)
[2016-10-21] MEDS: SODIUM CHLOR 0.9% PF (SALINE LOCK) 10ML VIAL IV SCH ×2 (09:50→22:43)
[2016-10-21] MEDS: D5W 5% 1,000 ML IV SCH (10:56)
[2016-10-21] MEDS: HYDROmorphone HCL 2 MG/ML VL IV PRN ×2 (11:59→20:33)
[2016-10-21] MEDS ORDERED: TPN PER PHARMACY IV NR ×10 (20:00)
[2016-10-21] MEDS: NYSTATIN TOPICAL POWDER 15GM TOP SCH (22:00)
[2016-10-22] VITALS (7 sets, daily range): BP systolic 141–189; BP diastolic 64–76
[2016-10-22] MEDS: InsuLIN REG 1unit/0.01ml Soln (100units/ml) SC SCH ×4 (01:00→18:00)
[2016-10-22] MEDS: hydrALAZINE HCL 20 MG/ML VL IV PRN ×2 (04:41→21:16)
[2016-10-22] MEDS: metroNIDAZOLE 500MG/100ML 100 ML IV SCH ×3 (05:47→22:06)
[2016-10-22] MEDS: ACCU-CHEK COMFORT CURVE STRIP VI SCH ×4 (06:06→18:20)
[2016-10-22] MEDS: LORazepam 2MG/ML-1ML VIAL IV PRN (06:31)
[2016-10-22 06:32] LABS: Basophils # (auto) 0 uL; Basophils % (auto) 0.1 % (0.0-2.0); Eosinophils # (auto) 0.2 uL; Eosinophils % (auto) 1.5 % (0.0-7.0); Hematocrit 32.2 % (36.0-46.0); Hemoglobin 10.6 g/dL (12.2-16.2); Lymphocytes # (auto) 0.5 uL; Lymphocytes % (auto) 4.4 % (10.0-50.0); Mean Corpuscular Hemoglobin 30.7 pg (28.0-32.0); Mean Corpuscular Volume 93.1 fL (80.0-100.0); Mean Platelet Volume 9.4 fL (7.4-10.4); Monocytes # (auto) 0.7 uL; Monocytes % (auto) 6.5 % (0.0-12.0); Neutrophils # (auto) 8.9 uL; Neutrophils % (auto) 87.5 % (37.0-80.0); Platelet Count (auto) 173 10^3/uL (140-450); Red Cell Distribution Width 15.6 % (11.6-16.0); White Blood Cell 10.2 10^3/uL (4.4-10.8)
[2016-10-22 06:48] LABS: INR 1.19 (0.9-1.15); Prothrombin Time 12.8 sec (9.37-12.3)
[2016-10-22 07:10] LABS: BUN/Creatinine Ratio 41.2; Bilirubin, Total 0.6 mg/dL (0.2-1.0); Calcium 8.5 mg/dL (8.5-10.1); Magnesium 2.2 mg/dL (1.6-2.6); Phosphorus 3.4 mg/dL (2.5-4.90); Potassium 4.2 mmol/L (3.5-5.1); Total Protein 5.3 g/dL (6.4-8.2)
[2016-10-22] MEDS: HYDROmorphone HCL 2 MG/ML VL IV PRN ×3 (08:40→22:08)
[2016-10-22] MEDS: SODIUM CHLOR 0.9% PF (SALINE LOCK) 10ML VIAL IV SCH ×2 (09:42→22:07)
[2016-10-22] MEDS: PANTOPRAZOLE SODIUM 40 MG/10 ML VIAL IV SCH ×2 (09:42→22:07)
[2016-10-22] MEDS: NYSTATIN TOPICAL POWDER 15GM TOP SCH ×2 (09:42→22:07)
[2016-10-22] MEDS ORDERED: LORazepam 2MG/ML-1ML VIAL IV PRN (12:45)
[2016-10-22] MEDS ORDERED: ACETAMINOPHEN 325 MG TAB PO PRN (12:45)
[2016-10-22] MEDS ORDERED: DEXTROSE (50%) 50ML SYRG IV PRN (12:45)
[2016-10-22] MEDS ORDERED: ONDANSETRON HCL 4 MG/2 ML VIAL IV PRN (12:45)
[2016-10-22] MEDS ORDERED: GASTROGRAFIN 120 ML SOL ONE (13:40)
[2016-10-22] MEDS ORDERED: FUROSEMIDE 20 MG/2 ML VIAL IV ONE (15:30)
[2016-10-22] MEDS ORDERED: TPN PER PHARMACY IV NR ×10 (20:00)
[2016-10-22] MEDS: D5W 5% 1,000 ML IV SCH (21:16)
[2016-10-23] VITALS (7 sets, daily range): BP systolic 112–177; BP diastolic 50–76
[2016-10-23] MEDS: InsuLIN REG 1unit/0.01ml Soln (100units/ml) SC SCH ×4 (06:00→18:00)
[2016-10-23] MEDS: ACCU-CHEK COMFORT CURVE STRIP VI SCH ×4 (06:28→18:18)
[2016-10-23] MEDS: metroNIDAZOLE 500MG/100ML 100 ML IV SCH ×3 (06:50→22:46)
[2016-10-23] MEDS: HYDROmorphone HCL 2 MG/ML VL IV PRN ×3 (07:02→20:56)
[2016-10-23 08:00] LABS: Albumin 2.6 g/dL (3.4-5.0); BUN/Creatinine Ratio 43.5; Bilirubin, Total 0.6 mg/dL (0.2-1.0); Calcium 8.3 mg/dL (8.5-10.1); Magnesium 2.4 mg/dL (1.6-2.6); Potassium 4.8 mmol/L (3.5-5.1); Total Protein 5.3 g/dL (6.4-8.2)
[2016-10-23] MEDS: D5W 5% 1,000 ML IV SCH ×2 (09:45→11:19)
[2016-10-23] MEDS: PANTOPRAZOLE SODIUM 40 MG/10 ML VIAL IV SCH ×2 (09:57→22:47)
[2016-10-23] MEDS: SODIUM CHLOR 0.9% PF (SALINE LOCK) 10ML VIAL IV SCH ×2 (09:57→22:47)
[2016-10-23] MEDS: LEVOFLOXACIN 250MG 50 ML IV SCH (09:59)
[2016-10-23] MEDS: NYSTATIN TOPICAL POWDER 15GM TOP SCH ×2 (10:03→22:00)
[2016-10-23] MEDS ORDERED: TPN PER PHARMACY IV NR ×8 (20:00)
[2016-10-24] VITALS: BP 140/66
[2016-10-24] MEDS: HYDROmorphone HCL 2 MG/ML VL IV PRN ×2 (03:16→16:16)
[2016-10-24 04:00] VITALS: BP 148/64
[2016-10-24] MEDS: InsuLIN REG 1unit/0.01ml Soln (100units/ml) SC SCH ×4 (06:00→17:29)
[2016-10-24] MEDS: ACCU-CHEK COMFORT CURVE STRIP VI SCH ×4 (06:00→17:30)
[2016-10-24] MEDS: metroNIDAZOLE 500MG/100ML 100 ML IV SCH ×3 (06:41→22:11)
[2016-10-24 07:02] LABS: Albumin 2.3 g/dL (3.4-5.0); BUN/Creatinine Ratio 43.3; Bilirubin, Total 0.5 mg/dL (0.2-1.0); Calcium 8.1 mg/dL (8.5-10.1); Magnesium 2.2 mg/dL (1.6-2.6); Phosphorus 3.2 mg/dL (2.5-4.90); Potassium 4.5 mmol/L (3.5-5.1)
[2016-10-24] MEDS: D5W 5% 1,000 ML IV SCH (07:19)
[2016-10-24 08:00] VITALS: BP 140/66
[2016-10-24] MEDS: PANTOPRAZOLE SODIUM 40 MG/10 ML VIAL IV SCH ×2 (09:31→22:11)
[2016-10-24] MEDS: NYSTATIN TOPICAL POWDER 15GM TOP SCH ×2 (09:31→22:11)
[2016-10-24] MEDS: SODIUM CHLOR 0.9% PF (SALINE LOCK) 10ML VIAL IV SCH ×2 (09:31→22:11)
[2016-10-24 12:00] VITALS: BP 163/66
[2016-10-24 16:00] VITALS: BP 163/63
[2016-10-24 20:00] VITALS: BP 144/59
[2016-10-24] MEDS ORDERED: TPN PER PHARMACY IV NR ×9 (20:00)
[2016-10-25] VITALS (7 sets, daily range): BP systolic 130–170; BP diastolic 56–69
[2016-10-25] MEDS: HYDROmorphone HCL 2 MG/ML VL IV PRN (00:20)
[2016-10-25] MEDS: InsuLIN REG 1unit/0.01ml Soln (100units/ml) SC SCH ×5 (00:24→23:59)
[2016-10-25] MEDS: ACCU-CHEK COMFORT CURVE STRIP VI SCH ×5 (00:24→23:59)
[2016-10-25] MEDS: D5W 5% 1,000 ML IV SCH ×2 (02:29→16:07)
[2016-10-25 05:39] LABS: Basophils # (auto) 0 uL; Basophils % (auto) 0.3 % (0.0-2.0); Eosinophils # (auto) 0.1 uL; Eosinophils % (auto) 0.6 % (0.0-7.0); Hematocrit 29.2 % (36.0-46.0); Hemoglobin 9.6 g/dL (12.2-16.2); Lymphocytes # (auto) 0.7 uL; Lymphocytes % (auto) 8.2 % (10.0-50.0); Mean Corpuscular Hemoglobin 30.8 pg (28.0-32.0); Mean Corpuscular Hgb Conc. 32.8 g/dL (32.0-36.0); Mean Corpuscular Volume 93.8 fL (80.0-100.0); Mean Platelet Volume 9.1 fL (7.4-10.4); Monocytes # (auto) 0.7 uL; Monocytes % (auto) 7.6 % (0.0-12.0); Neutrophils # (auto) 7.1 uL; Neutrophils % (auto) 83.3 % (37.0-80.0); Platelet Count (auto) 169 10^3/uL (140-450); Red Cell Distribution Width 15.6 % (11.6-16.0); White Blood Cell 8.6 10^3/uL (4.4-10.8)
[2016-10-25 05:55] LABS: Albumin 2.1 g/dL (3.4-5.0); BUN/Creatinine Ratio 41.8; Bilirubin, Total 0.4 mg/dL (0.2-1.0); Calcium 7.9 mg/dL (8.5-10.1); Phosphorus 2.7 mg/dL (2.5-4.90); Potassium 4.2 mmol/L (3.5-5.1); Total Protein 4.9 g/dL (6.4-8.2)
[2016-10-25] MEDS: metroNIDAZOLE 500MG/100ML 100 ML IV SCH ×3 (06:18→22:09)
[2016-10-25] MEDS: NYSTATIN TOPICAL POWDER 15GM TOP SCH ×2 (09:56→22:10)
[2016-10-25] MEDS: PANTOPRAZOLE SODIUM 40 MG/10 ML VIAL IV SCH ×2 (09:56→22:09)
[2016-10-25] MEDS: SODIUM CHLOR 0.9% PF (SALINE LOCK) 10ML VIAL IV SCH ×2 (09:56→22:09)
[2016-10-25] MEDS: LEVOFLOXACIN 250MG 50 ML IV SCH (09:56)
[2016-10-25 12:31] LABS: Hematocrit 29.3 % (36.0-46.0); Hemoglobin 9.9 g/dL (12.2-16.2)
[2016-10-25] MEDS ORDERED: TPN PER PHARMACY IV NR ×10 (20:00)
[2016-10-26] MEDS: HYDROmorphone HCL 2 MG/ML VL IV PRN ×2 (03:15→18:31)
[2016-10-26 04:01] VITALS: BP 122/51
[2016-10-26] MEDS: InsuLIN REG 1unit/0.01ml Soln (100units/ml) SC SCH ×3 (06:00→22:37)
[2016-10-26] MEDS: ACCU-CHEK COMFORT CURVE STRIP VI SCH ×3 (06:00→22:29)
[2016-10-26] MEDS: metroNIDAZOLE 500MG/100ML 100 ML IV SCH ×3 (06:37→22:23)
[2016-10-26 06:55] LABS: Bilirubin, Total 0.4 mg/dL (0.2-1.0); Calcium 8.1 mg/dL (8.5-10.1); Magnesium 1.9 mg/dL (1.6-2.6); Phosphorus 3.1 mg/dL (2.5-4.90); Potassium 4.2 mmol/L (3.5-5.1)
[2016-10-26] MEDS: NYSTATIN TOPICAL POWDER 15GM TOP SCH ×2 (09:57→22:24)
[2016-10-26] MEDS: PANTOPRAZOLE SODIUM 40 MG/10 ML VIAL IV SCH ×2 (09:57→22:23)
[2016-10-26] MEDS: SODIUM CHLOR 0.9% PF (SALINE LOCK) 10ML VIAL IV SCH ×2 (09:57→22:23)
[2016-10-26] MEDS ORDERED: cloNIDine 0.1 mg/24hr 7 DAY PATCH TD SCH (10:00)
[2016-10-26 12:00] VITALS: BP 136/61
[2016-10-26] MEDS ORDERED: DEXTROSE (50%) 50ML SYRG IV PRN (12:15)
[2016-10-26] MEDS ORDERED: MAGNESIUM SULFATE 1GM/100ML 100 ML IV ONE (12:15)
[2016-10-26] MEDS: D5W 5% 1,000 ML IV SCH (15:36)
[2016-10-26 16:00] VITALS: BP 126/63
[2016-10-26 17:00] VITALS: BP 153/67
[2016-10-26 20:00] VITALS: BP 127/53
[2016-10-26] MEDS ORDERED: TPN PER PHARMACY IV NR ×10 (20:00)
[2016-10-26 21:54] VITALS: BP 127/53
[2016-10-27] MEDS: HYDROmorphone HCL 2 MG/ML VL IV PRN (00:28)
[2016-10-27 04:46] VITALS: BP 131/60
[2016-10-27] MEDS: metroNIDAZOLE 500MG/100ML 100 ML IV SCH (06:14)
[2016-10-27] MEDS: InsuLIN REG 1unit/0.01ml Soln (100units/ml) SC SCH ×4 (06:18→21:39)
[2016-10-27] MEDS: ACCU-CHEK COMFORT CURVE STRIP VI SCH ×4 (06:18→21:39)
[2016-10-27 08:00] VITALS: BP 129/48
[2016-10-27 09:14] LABS: Hematocrit 25.9 % (36.0-46.0); Hemoglobin 8.5 g/dL (12.2-16.2)
[2016-10-27 09:41] LABS: Albumin 1.9 g/dL (3.4-5.0); Bilirubin, Total 0.4 mg/dL (0.2-1.0); Calcium 7.6 mg/dL (8.5-10.1); Magnesium 2.1 mg/dL (1.6-2.6); Phosphorus 3.6 mg/dL (2.5-4.90); Potassium 4.3 mmol/L (3.5-5.1); Total Protein 4.5 g/dL (6.4-8.2)
[2016-10-27] MEDS: PANTOPRAZOLE 40 MG TAB PO SCH (11:04)
[2016-10-27] MEDS: Boost Glucose Control 8 Ounces PO SCH ×2 (12:00→16:47)
[2016-10-27] MEDS: SODIUM CHLOR 0.9% PF (SALINE LOCK) 10ML VIAL IV SCH ×2 (13:27→21:33)
[2016-10-27] MEDS: NYSTATIN TOPICAL POWDER 15GM TOP SCH ×2 (13:27→21:34)
[2016-10-27] MEDS: LEVOFLOXACIN 250MG 50 ML IV SCH (13:27)
[2016-10-27] MEDS: metroNIDAZOLE 500 MG TAB PO SCH ×2 (14:00→21:33)
[2016-10-27] MEDS ORDERED: D5W 5% 1,000 ML IV SCH (16:07)
[2016-10-27 17:00] VITALS: BP 160/83
[2016-10-27 20:00] VITALS: BP 137/55
[2016-10-27 22:00] VITALS: BP 137/55
[2016-10-28 05:00] VITALS: BP 147/63
[2016-10-28] MEDS: metroNIDAZOLE 500 MG TAB PO SCH (05:31)
[2016-10-28] MEDS: InsuLIN REG 1unit/0.01ml Soln (100units/ml) SC SCH ×4 (06:21→22:00)
[2016-10-28] MEDS: ACCU-CHEK COMFORT CURVE STRIP VI SCH ×4 (06:22→22:00)
[2016-10-28 07:47] LABS: Basophils # (auto) 0 uL; Basophils % (auto) 0.4 % (0.0-2.0); Eosinophils # (auto) 0 uL; Eosinophils % (auto) 0.7 % (0.0-7.0); Hematocrit 26.8 % (36.0-46.0); Hemoglobin 8.9 g/dL (12.2-16.2); Lymphocytes # (auto) 0.6 uL; Lymphocytes % (auto) 10.7 % (10.0-50.0); Mean Corpuscular Hemoglobin 31.5 pg (28.0-32.0); Mean Corpuscular Hgb Conc. 33.4 g/dL (32.0-36.0); Mean Corpuscular Volume 94.3 fL (80.0-100.0); Mean Platelet Volume 9.4 fL (7.4-10.4); Monocytes # (auto) 0.5 uL; Monocytes % (auto) 7.6 % (0.0-12.0); Neutrophils # (auto) 4.8 uL; Neutrophils % (auto) 80.6 % (37.0-80.0); Platelet Count (auto) 132 10^3/uL (140-450); Red Cell Distribution Width 15.7 % (11.6-16.0)
[2016-10-28 08:00] VITALS: BP 155/69
[2016-10-28] MEDS: Boost Glucose Control 8 Ounces PO SCH ×3 (08:00→17:06)
[2016-10-28 08:13] LABS: BUN/Creatinine Ratio 41.3; Calcium 7.8 mg/dL (8.5-10.1); Potassium 4.7 mmol/L (3.5-5.1)
[2016-10-28 09:00] VITALS: BP 155/69
[2016-10-28] MEDS: PANTOPRAZOLE 40 MG TAB PO SCH (10:00)
[2016-10-28] MEDS: HYDROmorphone HCL 2 MG/ML VL IV PRN ×3 (10:38→22:52)
[2016-10-28] MEDS: NYSTATIN TOPICAL POWDER 15GM TOP SCH ×2 (10:40→22:53)
[2016-10-28] MEDS: SODIUM CHLOR 0.9% PF (SALINE LOCK) 10ML VIAL IV SCH ×2 (10:40→21:55)
[2016-10-28 13:00] VITALS: BP 156/70
[2016-10-28] MEDS: hydrALAZINE HCL 20 MG/ML VL IV PRN (15:52)
[2016-10-28 17:00] VITALS: BP 113/56
[2016-10-28 22:00] VITALS: BP 160/61
[2016-10-29 05:00] VITALS: BP 149/74
[2016-10-29] MEDS: HYDROmorphone HCL 2 MG/ML VL IV PRN ×2 (05:03→10:29)
[2016-10-29 05:52] LABS: BUN/Creatinine Ratio 39.9; Calcium 7.9 mg/dL (8.5-10.1); Potassium 4.6 mmol/L (3.5-5.1)
[2016-10-29] MEDS: ACCU-CHEK COMFORT CURVE STRIP VI SCH ×4 (06:53→21:49)
[2016-10-29] MEDS: InsuLIN REG 1unit/0.01ml Soln (100units/ml) SC SCH ×4 (06:54→21:49)
[2016-10-29 08:00] VITALS: BP 153/67
[2016-10-29] MEDS: Boost Glucose Control 8 Ounces PO SCH ×3 (08:00→18:00)
[2016-10-29 09:00] VITALS: BP 153/67
[2016-10-29] MEDS: NYSTATIN TOPICAL POWDER 15GM TOP SCH ×2 (10:00→21:50)
[2016-10-29] MEDS: PANTOPRAZOLE 40 MG TAB PO SCH (10:00)
[2016-10-29] MEDS: SODIUM CHLOR 0.9% PF (SALINE LOCK) 10ML VIAL IV SCH ×2 (10:00→21:49)
[2016-10-29] MEDS ORDERED: LORazepam 2MG/ML-1ML VIAL IV PRN (11:15)
[2016-10-29] MEDS ORDERED: NIFEdipine ER 30 MG TAB PO ONE (11:15)
[2016-10-29] MEDS ORDERED: HYDROmorphone HCL 2 MG/ML VL IV PRN (11:15)
[2016-10-29] MEDS ORDERED: CITALOPRAM HYDROBR 20 MG TAB PO ONE (11:15)
[2016-10-29 13:00] VITALS: BP 132/54
[2016-10-29 17:00] VITALS: BP 171/71
[2016-10-29] MEDS: CARBIDOPA W LEVODOPA 25/100mg TABLET PO SCH (21:49)
[2016-10-29 22:00] VITALS: BP 153/64
[2016-10-30] VITALS (7 sets, daily range): BP systolic 106–162; BP diastolic 59–74
[2016-10-30 05:46] LABS: Hematocrit 26.8 % (36.0-46.0); Hemoglobin 8.8 g/dL (12.2-16.2)
[2016-10-30 06:00] LABS: BUN/Creatinine Ratio 39.8; Calcium 7.8 mg/dL (8.5-10.1); Potassium 4.3 mmol/L (3.5-5.1)
[2016-10-30] MEDS: CARBIDOPA W LEVODOPA 25/100mg TABLET PO SCH ×3 (06:06→22:00)
[2016-10-30] MEDS: InsuLIN REG 1unit/0.01ml Soln (100units/ml) SC SCH ×4 (07:00→22:00)
[2016-10-30] MEDS: ACCU-CHEK COMFORT CURVE STRIP VI SCH ×4 (07:02→22:00)
[2016-10-30] MEDS: Boost Glucose Control 8 Ounces PO SCH ×3 (08:00→18:00)
[2016-10-30] MEDS: NYSTATIN TOPICAL POWDER 15GM TOP SCH ×2 (10:00→22:01)
[2016-10-30] MEDS: CITALOPRAM HYDROBR 20 MG TAB PO SCH (10:03)
[2016-10-30] MEDS: SODIUM CHLOR 0.9% PF (SALINE LOCK) 10ML VIAL IV SCH ×2 (10:03→22:00)
[2016-10-30] MEDS: PANTOPRAZOLE 40 MG TAB PO SCH (10:03)
[2016-10-30] MEDS: NIFEdipine ER 30 MG TAB PO SCH (10:04)
[2016-10-30] MEDS ORDERED: cloNIDine HCL 0.1 MG TAB PO PRN (11:15)
[2016-10-30] MEDS: LEVOTHYROXINE SODIUM 25 MCG TAB PO SCH (11:48)
[2016-10-31 05:30] VITALS: BP 156/70
[2016-10-31] MEDS: CARBIDOPA W LEVODOPA 25/100mg TABLET PO SCH ×2 (06:03→14:01)
[2016-10-31 06:22] LABS: Hematocrit 26.8 % (36.0-46.0); Hemoglobin 8.9 g/dL (12.2-16.2)
[2016-10-31] MEDS: ACCU-CHEK COMFORT CURVE STRIP VI SCH ×2 (06:31→11:30)
[2016-10-31] MEDS: LEVOTHYROXINE SODIUM 25 MCG TAB PO SCH (06:31)
[2016-10-31] MEDS: InsuLIN REG 1unit/0.01ml Soln (100units/ml) SC SCH ×2 (06:31→11:30)
[2016-10-31 06:37] LABS: BUN/Creatinine Ratio 37.3; Calcium 7.9 mg/dL (8.5-10.1); Potassium 3.9 mmol/L (3.5-5.1)
[2016-10-31 08:00] VITALS: BP 119/62
[2016-10-31 09:00] VITALS: BP 119/62
[2016-10-31] MEDS: SODIUM CHLOR 0.9% PF (SALINE LOCK) 10ML VIAL IV SCH (10:01)
[2016-10-31] MEDS: Boost Glucose Control 8 Ounces PO SCH ×2 (10:01→12:00)
[2016-10-31] MEDS: CITALOPRAM HYDROBR 20 MG TAB PO SCH (10:02)
[2016-10-31] MEDS: PANTOPRAZOLE 40 MG TAB PO SCH (10:02)
[2016-10-31] MEDS: NIFEdipine ER 30 MG TAB PO SCH (10:02)
[2016-10-31] MEDS: NYSTATIN TOPICAL POWDER 15GM TOP SCH (10:03)
[2016-10-31] MEDS ORDERED: CAR25T PO (11:03)
[2016-10-31] MEDS ORDERED: CITA-77 PO (11:03)
[2016-10-31] MEDS ORDERED: LEV25T PO (11:03)
[2016-10-31] MEDS ORDERED: PANT40T PO (11:03)
[2016-10-31] MEDS ORDERED: NOR5T PO (11:07)
[2016-10-31] MEDS ORDERED: HYDROcodone-ACET 5/325MG TAB PO PRN (11:15)
[2016-10-31] MEDS ORDERED: LORazepam 0.5 MG TAB PO PRN (11:15)
[2016-10-31] MEDS ORDERED: MET25T PO (11:18)
[2016-10-31] MEDS ORDERED: ATOR20TA50 PO (11:18)
[2016-10-31] MEDS ORDERED: LOR05T PO (11:20)
[2016-10-31 13:00] VITALS: BP 127/64
[2016-10-31 13:26] VITALS: BP 119/62
[2016-10-31] MEDS ORDERED: ATORVASTATIN 20 MG TAB PO SCH (22:00)
[2016-10-31] MEDS ORDERED: METOPROLOL TARTRATE 25 MG TAB PO SCH (22:00)
== END 2016-10-31 16:01 | DRG 710 ==
LOC: EDBD 21:05 → ER 21:07 → OVERFLOW 21:08 → WEST WING 10-08 11:06 → ICU WEST 10-14 19:55 → DOU IN ICU 10-18 16:15 → TELE-CENTR 10-26 16:47 → CENTRAL 10-27 19:58
PROVIDERS: ADMIT Nurse Practitioner; ATTEND Internal Medicine
PROC: 0DB88ZX Excision of Small Intestine, Via Natural or Artificial Opening Endoscopic, Diagnostic (ICD-10-PCS; 2016-10-12)
PROC: 0DB68ZX Excision of Stomach, Via Natural or Artificial Opening Endoscopic, Diagnostic (ICD-10-PCS; principal; 2016-10-12 15:12)
PROC: 0DN80ZZ Release Small Intestine, Open Approach (ICD-10-PCS; 2016-10-14)
PROC: 02H633Z Insertion of Infusion Device into Right Atrium, Percutaneous Approach (ICD-10-PCS; 2016-10-14)
PROC: 0W9G0ZZ Drainage of Peritoneal Cavity, Open Approach (ICD-10-PCS; 2016-10-14)
PROC: 5A1945Z Respiratory Ventilation, 24-96 Consecutive Hours (ICD-10-PCS; 2016-10-14)
PROC: 0BH17EZ Insertion of Endotracheal Airway into Trachea, Via Natural or Artificial Opening (ICD-10-PCS; 2016-10-14)
PROC: 30233N1 Transfusion of Nonautologous Red Blood Cells into Peripheral Vein, Percutaneous Approach (ICD-10-PCS; 2016-10-14)
PROC: 0DTE0ZZ Resection of Large Intestine, Open Approach (ICD-10-PCS; 2016-10-14)
DX: A41.9 Sepsis, unspecified organism (principal); N17.0 Acute kidney failure with tubular necrosis; J96.00 Acute respiratory failure, unspecified whether with hypoxia or hypercapnia; K65.1 Peritoneal abscess; E43 Unspecified severe protein-calorie malnutrition; G93.41 Metabolic encephalopathy; K65.9 Peritonitis, unspecified; E87.0 Hyperosmolality and hypernatremia; I13.0 Hypertensive heart and chronic kidney disease with heart failure and stage 1 through stage 4 chronic kidney disease, or unspecified chronic kidney disease; Z90.49 Acquired absence of other specified parts of digestive tract; K55.9 Vascular disorder of intestine, unspecified; I50.9 Heart failure, unspecified; E11.52 Type 2 diabetes mellitus with diabetic peripheral angiopathy with gangrene; E11.21 Type 2 diabetes mellitus with diabetic nephropathy; N18.3 Chronic kidney disease, stage 3 (moderate); K56.41 Fecal impaction; Z86.73 Personal history of transient ischemic attack (TIA), and cerebral infarction without residual deficits; D63.8 Anemia in other chronic diseases classified elsewhere; Z91.19 Patient's noncompliance with other medical treatment and regimen; M81.0 Age-related osteoporosis without current pathological fracture; E78.5 Hyperlipidemia, unspecified; K63.89 Other specified diseases of intestine; D32.0 Benign neoplasm of cerebral meninges; E11.22 Type 2 diabetes mellitus with diabetic chronic kidney disease; E11.65 Type 2 diabetes mellitus with hyperglycemia; E86.0 Dehydration; G20 Parkinson's disease; K25.9 Gastric ulcer, unspecified as acute or chronic, without hemorrhage or perforation; K29.60 Other gastritis without bleeding; K66.0 Peritoneal adhesions (postprocedural) (postinfection); Z82.0 Family history of epilepsy and other diseases of the nervous system; Z82.49 Family history of ischemic heart disease and other diseases of the circulatory system; Z83.3 Family history of diabetes mellitus; Z79.82 Long term (current) use of aspirin; Z68.35 Body mass index [BMI] 35.0-35.9, adult; N39.0 Urinary tract infection, site not specified; D69.6 Thrombocytopenia, unspecified; E66.9 Obesity, unspecified; K44.9 Diaphragmatic hernia without obstruction or gangrene
CPT/HCPCS: 36415; 36569; 36600; 70450; 71010; 74176; 74250; 80048; 80053; 80202; 81001; 82040; 82150; 82550; 82805; 82962; 83036; 83605; 83690; 83735; 84100; 84439; 84443; 84478; 84484; 85007; 85014; 85018; 85025; 85027; 85048; 85610; 85730; 86850; 86900; 86901; 86920; 87040; 87070; 87075; 87081; 87086; 87205; 87493; 88307; 88341; 92610; 93005; 93971; 94003; 94761; 95819; 96372; 97001; 97110; 97530; C9113; J0690; J0696; J1100; J1815; J1885; J1956; J2250; J2405; J2543; J3480; J3490; J7060

== ENCOUNTER 2016-12-29 11:17 | Inpatient (IN) | payer MEDICAID ==
[~2016-12-29] VITALS: Ht 167.6 cm; Wt 31.8 kg
[~2016-12-29 11:17] MED LIST changes: -AML5T PO; +CAR25T PO; +CITA-77 PO; +LEV25T PO; +MET25T PO
[2016-12-29] MEDS ORDERED: SODIUM CHLORIDE 0.9% 1,000 ML IVB ONE ×2 (11:56)
[2016-12-29] MEDS ORDERED: ONDANSETRON HCL 4 MG/2 ML VIAL IV ONE (12:00)
[2016-12-29] MEDS ORDERED: cefTRIAXone 1GM/50ML D5W 50 ML IV ONE (12:15)
[2016-12-29 12:40] LABS: Basophils # (auto) 0 uL; Basophils % (auto) 0.1 % (0.0-2.0); Eosinophils # (auto) 0 uL; Hematocrit 36.3 % (36.0-46.0); Lymphocytes # (auto) 0.9 uL; Lymphocytes % (auto) 7.1 % (10.0-50.0); Mean Corpuscular Hemoglobin 32.3 pg (28.0-32.0); Mean Corpuscular Hgb Conc. 33.2 g/dL (32.0-36.0); Mean Corpuscular Volume 97.4 fL (80.0-100.0); Monocytes # (auto) 0.3 uL; Monocytes % (auto) 2.5 % (0.0-12.0); Neutrophils # (auto) 11.2 uL; Neutrophils % (auto) 90.3 % (37.0-80.0); Platelet Count (auto) 126 10^3/uL (140-450); Red Cell Distribution Width 18.8 % (11.6-16.0); White Blood Cell 12.4 10^3/uL (4.4-10.8)
[2016-12-29 13:11] LABS: Albumin 2.2 g/dL (3.4-5.0); BUN/Creatinine Ratio 27.7; Calcium 8.2 mg/dL (8.5-10.1); Potassium 4.4 mmol/L (3.5-5.1)
[2016-12-29 13:13] LABS: Bilirubin, Total 0.4 mg/dL (0.2-1.0); Total Protein 6.6 g/dL (6.4-8.2)
[2016-12-29] MEDS ORDERED: SODIUM CHLORIDE 0.9% 1,000 ML IV SCH (15:38)
[2016-12-29] MEDS ORDERED: ALBUTEROL SULF 2.5 MG/0.5ML(0.5%) NEB SOLN NEB PRN (15:45)
[2016-12-29] MEDS ORDERED: LEVOFLOXACIN 500MG 100 ML IV ONE (15:45)
[2016-12-29] MEDS ORDERED: LORazepam 0.5 MG TAB PO PRN (15:45)
[2016-12-29] MEDS ORDERED: DEXTROSE (50%) 50ML SYRG IV PRN (15:45)
[2016-12-29] MEDS ORDERED: NITROGLYCERIN 0.4 MG SL TAB SL PRN (15:45)
[2016-12-29] MEDS ORDERED: TEMAZEPAM 15 MG CAP PO PRN (15:45)
[2016-12-29] MEDS ORDERED: PANTOPRAZOLE SODIUM 40 MG/10 ML VIAL IV ONE (15:45)
[2016-12-29] MEDS ORDERED: MORPHINE SULF INJ 2 MG/ML SYRINGE 1ML IV PRN (15:45)
[2016-12-29] MEDS ORDERED: ACETAMINOPHEN 500 MG TAB PO PRN (15:45)
[2016-12-29 15:55] LABS: Magnesium 1.9 mg/dL (1.6-2.6)
[2016-12-29 15:57] LABS: Lactic Acid w/Reflex 2.3 mmol/L (0.4-2.0)
[2016-12-29 16:10] LABS: REFLEX LACTIC ACID YES OR NO YES
[2016-12-29] MEDS ORDERED: ENOXAPARIN SOD 30 MG/0.3 ML SYRINGE SC ONE (17:00)
[2016-12-29 17:28] LABS: INR 1.04 (0.9-1.15); Partial Thromboplastin Time 23.6 sec (22.64-33.71); Prothrombin Time 11.3 sec (9.37-12.3)
[2016-12-29] MEDS: ACCU-CHEK COMFORT CURVE STRIP VI SCH (17:35)
[2016-12-29] MEDS: metroNIDAZOLE 500MG/100ML 100 ML IV SCH (17:35)
[2016-12-29 17:40] LABS: Amylase 62 U/L (25-115)
[2016-12-29] MEDS: InsuLIN REG 1unit/0.01ml Soln (100units/ml) SC SCH (17:43)
[2016-12-29] MEDS ORDERED: GASTROGRAFIN 120 ML SOL ONE (18:22)
[2016-12-29] MEDS ORDERED: SODIUM CHLORIDE 0.9% 1,000 ML IV ONE (18:45)
[2016-12-29] MEDS: SODIUM CHLORIDE 0.9% 1,000 ML IV SCH (18:45)
[2016-12-29] MEDS ORDERED: AZITHROMYCIN 500MG/D5W 250ML 250 ML IV ONE (19:00)
[2016-12-29] MEDS ORDERED: LINEZOLID 600MG/300ML 300 ML IV ONE (19:00)
[2016-12-29] MEDS ORDERED: PIPERACILLIN-TAZOB 3.375GM 100 ML IV ONE (19:00)
[2016-12-29] MEDS: IPRATROPIUM BROM 0.5 MG/2.5ML INH SOL NEB SCH (19:20)
[2016-12-29] MEDS: ALBUTEROL SULF 2.5 MG/0.5ML(0.5%) NEB SOLN NEB SCH (19:20)
[2016-12-29] MEDS ORDERED: CLINDAMYCIN 600MG IV 50 ML IV SCH (20:00)
[2016-12-29] MEDS: MORPHINE SULF INJ 2 MG/ML SYRINGE 1ML IV PRN (20:07)
[2016-12-29] MEDS: PROMETHAZINE HCL 25 MG/ML 1ML IV PRN (20:08)
[2016-12-29 22:43] VITALS: BP 149/92
[2016-12-30] MEDS ORDERED: PIPERACILLIN-TAZOB 3.375GM 100 ML IV SCH
[2016-12-30] MEDS: IPRATROPIUM BROM 0.5 MG/2.5ML INH SOL NEB SCH ×3 (00:40→12:25)
[2016-12-30] MEDS: ALBUTEROL SULF 2.5 MG/0.5ML(0.5%) NEB SOLN NEB SCH ×3 (00:40→12:25)
[2016-12-30] MEDS ORDERED: PIPERACILLIN-TAZOB 2.25GM 50 ML IV SCH (02:00)
[2016-12-30] MEDS: metroNIDAZOLE 500MG/100ML 100 ML IV SCH ×5 (03:00→23:44)
[2016-12-30] MEDS: SODIUM CHLORIDE 0.9% 1,000 ML IV SCH ×4 (03:47→20:08)
[2016-12-30 04:37] LABS: Basophils # (auto) 0 uL; Basophils % (auto) 0.1 % (0.0-2.0); Eosinophils # (auto) 0 uL; Hemoglobin 9.6 g/dL (12.2-16.2); Lymphocytes # (auto) 0.9 uL; Lymphocytes % (auto) 7.3 % (10.0-50.0); Mean Corpuscular Hemoglobin 32.2 pg (28.0-32.0); Mean Corpuscular Hgb Conc. 33.3 g/dL (32.0-36.0); Mean Corpuscular Volume 96.9 fL (80.0-100.0); Mean Platelet Volume 9.9 fL (7.4-10.4); Monocytes # (auto) 0.7 uL; Monocytes % (auto) 5.6 % (0.0-12.0); Neutrophils # (auto) 11.3 uL; Platelet Count (auto) 182 10^3/uL (140-450); Red Cell Distribution Width 18.5 % (11.6-16.0); White Blood Cell 12.9 10^3/uL (4.4-10.8)
[2016-12-30 04:58] LABS: Albumin 1.9 g/dL (3.4-5.0); BUN/Creatinine Ratio 25.2; Calcium 6.7 mg/dL (8.5-10.1); Potassium 3.3 mmol/L (3.5-5.1)
[2016-12-30 05:02] LABS: Bilirubin, Total 0.2 mg/dL (0.2-1.0); Total Protein 5.5 g/dL (6.4-8.2)
[2016-12-30] MEDS: PROMETHAZINE HCL 25 MG/ML 1ML IV PRN ×3 (05:18→18:56)
[2016-12-30] MEDS: MORPHINE SULF INJ 2 MG/ML SYRINGE 1ML IV PRN ×3 (05:18→18:56)
[2016-12-30] MEDS: InsuLIN REG 1unit/0.01ml Soln (100units/ml) SC SCH ×5 (06:00→23:52)
[2016-12-30] MEDS: ACCU-CHEK COMFORT CURVE STRIP VI SCH ×5 (06:00→23:52)
[2016-12-30] MEDS: LINEZOLID 600MG/300ML 300 ML IV SCH ×2 (07:30→18:30)
[2016-12-30] MEDS ORDERED: LEVOFLOXACIN 500MG 100 ML IV SCH (10:00)
[2016-12-30] MEDS: PIPERACILLIN-TAZOB 2.25GM 50 ML IV SCH ×2 (10:30→20:09)
[2016-12-30] MEDS: AZITHROMYCIN 500MG/D5W 250ML 250 ML IV SCH (10:30)
[2016-12-30] MEDS: PANTOPRAZOLE SODIUM 40 MG/10 ML VIAL IV SCH (10:30)
[2016-12-30] MEDS: ENOXAPARIN SOD 30 MG/0.3 ML SYRINGE SC SCH (10:30)
[2016-12-30 14:02] LABS: Urine Color Yellow (Yellow); Urine Glucose Normal (Normal); Urine Hyaline Cast MOD /lpf (0 - 2); Urine Ketone Negative (Negative); Urine Mucus FEW (None Seen); Urine Nitrite Negative (Negative); Urine RBC 11 /hpf (0 - 4); Urine Squamous Epithelial Cell FEW /hpf (<5); Urine Urobilinogen Normal (Negative); Urine WBC Clumps PRESENT /hpf (None Seen); Urine pH 5.5 (5.0-8.0)
[2016-12-30 14:26] LABS: Urine Bilirubin Negative (Negative); Urine Blood 1+ /uL (Negative)
[2016-12-30] MEDS ORDERED: LEVOFLOXACIN 250MG 50 ML IV SCH (16:00)
[2016-12-30] MEDS ORDERED: POTASSIUM CHL 20MEQ/100ML 100 ML IV ONE (20:45)
[2016-12-31] MEDS: PIPERACILLIN-TAZOB 2.25GM 50 ML IV SCH ×4 (01:52→20:07)
[2016-12-31] MEDS: MORPHINE SULF INJ 2 MG/ML SYRINGE 1ML IV PRN ×3 (02:47→14:00)
[2016-12-31] MEDS: SODIUM CHLORIDE 0.9% 1,000 ML IV SCH ×3 (03:06→12:55)
[2016-12-31] MEDS: InsuLIN REG 1unit/0.01ml Soln (100units/ml) SC SCH ×2 (05:37→12:30)
[2016-12-31] MEDS: ACCU-CHEK COMFORT CURVE STRIP VI SCH ×2 (05:37→12:22)
[2016-12-31] MEDS: IPRATROPIUM BROM 0.5 MG/2.5ML INH SOL NEB SCH ×3 (06:08→18:35)
[2016-12-31] MEDS: ALBUTEROL SULF 2.5 MG/0.5ML(0.5%) NEB SOLN NEB SCH ×3 (06:08→18:35)
[2016-12-31] MEDS: LINEZOLID 600MG/300ML 300 ML IV SCH (06:15)
[2016-12-31] MEDS: metroNIDAZOLE 500MG/100ML 100 ML IV SCH ×2 (06:28→12:22)
[2016-12-31 07:12] LABS: Basophils # (auto) 0 uL; Basophils % (auto) 0.1 % (0.0-2.0); DEFINITIVE VIEW TRANSMISSION; Eosinophils # (auto) 0 uL; Eosinophils % (auto) 0.2 % (0.0-7.0); Hemoglobin 9.5 g/dL (12.2-16.2); Lymphocytes # (auto) 1.6 uL; Lymphocytes % (auto) 16.8 % (10.0-50.0); Mean Corpuscular Hemoglobin 32.9 pg (28.0-32.0); Mean Corpuscular Volume 96.8 fL (80.0-100.0); Mean Platelet Volume 9.7 fL (7.4-10.4); Monocytes # (auto) 0.7 uL; Neutrophils # (auto) 7.2 uL; Neutrophils % (auto) 75.9 % (37.0-80.0); Platelet Count (auto) 150 10^3/uL (140-450); Red Cell Distribution Width 19.2 % (11.6-16.0); White Blood Cell 9.5 10^3/uL (4.4-10.8)
[2016-12-31 07:38] LABS: BUN/Creatinine Ratio 26.2; Bilirubin, Total 0.3 mg/dL (0.2-1.0); Calcium 7.1 mg/dL (8.5-10.1); Potassium 3.4 mmol/L (3.5-5.1); Total Protein 5.2 g/dL (6.4-8.2)
[2016-12-31] MEDS ORDERED: ALBUMIN 25% 50 ML IV ONE (08:45)
[2016-12-31] MEDS: ENOXAPARIN SOD 30 MG/0.3 ML SYRINGE SC SCH (10:12)
[2016-12-31] MEDS: PANTOPRAZOLE SODIUM 40 MG/10 ML VIAL IV SCH ×2 (10:12→21:42)
[2016-12-31] MEDS: AZITHROMYCIN 500MG/D5W 250ML 250 ML IV SCH (10:12)
[2016-12-31] MEDS: ALBUMIN 25% 50 ML IV SCH ×2 (14:00→21:39)
[2016-12-31 22:00] VITALS: BP_SYST 128; BP_SYST 155; BP_DIAS 62; BP_DIAS 69
[2017-01-01] VITALS (8 sets, daily range): BP systolic 138–170; BP diastolic 65–84
[2017-01-01] MEDS: IPRATROPIUM BROM 0.5 MG/2.5ML INH SOL NEB SCH ×4 (00:19→18:29)
[2017-01-01] MEDS: ALBUTEROL SULF 2.5 MG/0.5ML(0.5%) NEB SOLN NEB SCH ×4 (00:19→18:29)
[2017-01-01] MEDS: SOD CHL 0.45% 1,000 ML IV SCH (01:12)
[2017-01-01] MEDS: MORPHINE SULF INJ 2 MG/ML SYRINGE 1ML IV PRN ×3 (01:13→22:02)
[2017-01-01] MEDS: PIPERACILLIN-TAZOB 2.25GM 50 ML IV SCH ×4 (02:00→20:00)
[2017-01-01] MEDS: SODIUM CHLORIDE 0.9% 1,000 ML IV SCH (02:05)
[2017-01-01 04:40] LABS: Basophils # (auto) 0 uL; Basophils % (auto) 0.3 % (0.0-2.0); DEFINITIVE VIEW TRANSMISSION; Eosinophils # (auto) 0 uL; Eosinophils % (auto) 0.3 % (0.0-7.0); Hematocrit 24.2 % (36.0-46.0); Hemoglobin 8.1 g/dL (12.2-16.2); Lymphocytes # (auto) 0.9 uL; Mean Corpuscular Hemoglobin 32.7 pg (28.0-32.0); Mean Corpuscular Hgb Conc. 33.4 g/dL (32.0-36.0); Mean Corpuscular Volume 97.8 fL (80.0-100.0); Mean Platelet Volume 9.6 fL (7.4-10.4); Monocytes # (auto) 0.3 uL; Monocytes % (auto) 5.9 % (0.0-12.0); Neutrophils # (auto) 4.6 uL; Neutrophils % (auto) 78.5 % (37.0-80.0); Platelet Count (auto) 104 10^3/uL (140-450); Red Cell Distribution Width 18.7 % (11.6-16.0); White Blood Cell 5.8 10^3/uL (4.4-10.8)
[2017-01-01 04:57] LABS: Albumin 2.2 g/dL (3.4-5.0); BUN/Creatinine Ratio 26.5; Bilirubin, Total 0.3 mg/dL (0.2-1.0); Magnesium 1.4 mg/dL (1.6-2.6); Potassium 3.1 mmol/L (3.5-5.1); Total Protein 4.8 g/dL (6.4-8.2)
[2017-01-01 05:17] LABS: Temperature: 21.5 C (20.0-25.0)
[2017-01-01] MEDS: ALBUMIN 25% 50 ML IV SCH ×3 (06:00→21:55)
[2017-01-01] MEDS ORDERED: VITAMINS A & D (TOPICAL) OINT 5GM TOP ONE (08:56)
[2017-01-01] MEDS: PANTOPRAZOLE SODIUM 40 MG/10 ML VIAL IV SCH ×2 (10:00→21:58)
[2017-01-01] MEDS: ENOXAPARIN SOD 30 MG/0.3 ML SYRINGE SC SCH (10:00)
[2017-01-01] MEDS ORDERED: FLUCONAZOLE 100MG/50ML 50 ML IV ONE (11:00)
[2017-01-01] MEDS ORDERED: ASPirin-EC 81 mg tab PO ONE (11:00)
[2017-01-01] MEDS ORDERED: CITALOPRAM HYDROBR 20 MG TAB PO ONE (11:00)
[2017-01-01] MEDS ORDERED: METOPROLOL TARTRATE 25 MG TAB PO ONE (11:00)
[2017-01-01] MEDS ORDERED: SODIUM CHLORIDE 0.9% 1,000 ML IV SCH (12:45)
[2017-01-01] MEDS ORDERED: POTASSIUM CHL 10% (20 MEQ/15ML) ORAL SOLN PO ONE (13:30)
[2017-01-01] MEDS ORDERED: FUROSEMIDE 20 MG/2 ML VIAL IV ONE (13:30)
[2017-01-01] MEDS ORDERED: FUROSEMIDE 20 MG/2 ML VIAL ONE (14:26)
[2017-01-01] MEDS ORDERED: FUROSEMIDE 40 MG/4 ML VIAL ONE (14:26)
[2017-01-01] MEDS: METOPROLOL TARTRATE 25 MG TAB PO SCH (21:58)
[2017-01-01] MEDS: ATORVASTATIN 20 MG TAB PO SCH (21:58)
[2017-01-02] VITALS (8 sets, daily range): BP systolic 111–176; BP diastolic 51–81
[2017-01-02] MEDS: IPRATROPIUM BROM 0.5 MG/2.5ML INH SOL NEB SCH ×4 (00:26→19:05)
[2017-01-02] MEDS: ALBUTEROL SULF 2.5 MG/0.5ML(0.5%) NEB SOLN NEB SCH ×4 (00:27→19:05)
[2017-01-02] MEDS: PIPERACILLIN-TAZOB 2.25GM 50 ML IV SCH ×2 (05:43→08:01)
[2017-01-02] MEDS: ALBUMIN 25% 50 ML IV SCH ×3 (05:44→21:57)
[2017-01-02] MEDS: SOD CHL 0.45% 1,000 ML IV SCH ×2 (05:46→20:16)
[2017-01-02 06:57] LABS: Basophils # (auto) 0 uL; Basophils % (auto) 0.2 % (0.0-2.0); DEFINITIVE Y; Eosinophils # (auto) 0 uL; Eosinophils % (auto) 0.2 % (0.0-7.0); Hemoglobin 8.4 g/dL (12.2-16.2); Lymphocytes # (auto) 0.9 uL; Lymphocytes % (auto) 21.1 % (10.0-50.0); Mean Corpuscular Hemoglobin 32.7 pg (28.0-32.0); Mean Corpuscular Hgb Conc. 33.5 g/dL (32.0-36.0); Mean Corpuscular Volume 97.6 fL (80.0-100.0); Mean Platelet Volume 9.7 fL (7.4-10.4); Monocytes # (auto) 0.2 uL; Monocytes % (auto) 5.4 % (0.0-12.0); Neutrophils % (auto) 73.1 % (37.0-80.0); Platelet Count (auto) 100 10^3/uL (140-450); Red Cell Distribution Width 18.5 % (11.6-16.0); White Blood Cell 4.2 10^3/uL (4.4-10.8)
[2017-01-02] MEDS: LEVOTHYROXINE SODIUM 25 MCG TAB PO SCH (07:01)
[2017-01-02 07:09] LABS: Albumin 2.8 g/dL (3.4-5.0); BUN/Creatinine Ratio 26.2; Bilirubin, Total 0.6 mg/dL (0.2-1.0); Calcium 7.6 mg/dL (8.5-10.1); Magnesium 1.6 mg/dL (1.6-2.6); Phosphorus 2.6 mg/dL (2.5-4.90); Potassium 3.1 mmol/L (3.5-5.1); Total Protein 5.4 g/dL (6.4-8.2)
[2017-01-02] MEDS ORDERED: LEVOFLOXACIN 500MG 100 ML IV ONE (09:30)
[2017-01-02 10:12] LABS: Urine Bilirubin Negative (Negative); Urine Blood 1+ /uL (Negative); Urine Color Yellow (Yellow); Urine Glucose Normal (Normal); Urine Ketone Negative (Negative); Urine Mucus FEW (None Seen); Urine Nitrite Negative (Negative); Urine RBC 14 /hpf (0 - 4); Urine Squamous Epithelial Cell FEW /hpf (<5); Urine Urobilinogen Normal (Negative); Urine WBC Clumps PRESENT /hpf (None Seen); Urine pH 5.5 (5.0-8.0)
[2017-01-02] MEDS: PANTOPRAZOLE SODIUM 40 MG/10 ML VIAL IV SCH ×2 (10:23→21:52)
[2017-01-02] MEDS: METOPROLOL TARTRATE 25 MG TAB PO SCH ×2 (10:24→21:51)
[2017-01-02] MEDS: ASPirin-EC 81 mg tab PO SCH (10:25)
[2017-01-02] MEDS: FLUCONAZOLE 100MG/50ML 50 ML IV SCH (10:25)
[2017-01-02] MEDS: ENOXAPARIN SOD 30 MG/0.3 ML SYRINGE SC SCH (10:26)
[2017-01-02] MEDS: CITALOPRAM HYDROBR 20 MG TAB PO SCH (10:26)
[2017-01-02] MEDS: HYDROcodone-ACET 5/325MG TAB PO PRN (10:46)
[2017-01-02] MEDS: LEVOFLOXACIN 500MG 100 ML IV SCH (10:46)
[2017-01-02] MEDS: POTASSIUM CHL 10% (20 MEQ/15ML) ORAL SOLN PO SCH ×2 (13:39→21:52)
[2017-01-02] MEDS: MORPHINE SULF INJ 2 MG/ML SYRINGE 1ML IV PRN (13:54)
[2017-01-02] MEDS ORDERED: POTASSIUM CHL 20 Meq TABLET PO SCH ×3 (14:00)
[2017-01-02] MEDS ORDERED: MAGNESIUM SULFATE 1GM/100ML 100 ML IV ONE (14:15)
[2017-01-02] MEDS ORDERED: NIFEdipine ER 30 MG TAB PO ONE (14:15)
[2017-01-02] MEDS: ATORVASTATIN 20 MG TAB PO SCH (21:50)
[2017-01-03] VITALS (11 sets, daily range): BP systolic 121–162; BP diastolic 56–76
[2017-01-03] MEDS: POTASSIUM CHL 10% (20 MEQ/15ML) ORAL SOLN PO SCH (05:19)
[2017-01-03] MEDS: ALBUMIN 25% 50 ML IV SCH ×2 (05:19→14:30)
[2017-01-03] MEDS: LEVOTHYROXINE SODIUM 25 MCG TAB PO SCH (05:48)
[2017-01-03 06:22] LABS: Basophils # (auto) 0 uL; Basophils % (auto) 0.3 % (0.0-2.0); CONDITION Y; DEFINITIVE Y; Eosinophils # (auto) 0 uL; Eosinophils % (auto) 1.1 % (0.0-7.0); Hematocrit 23.1 % (36.0-46.0); Hemoglobin 7.8 g/dL (12.2-16.2); Lymphocytes # (auto) 0.8 uL; Lymphocytes % (auto) 18.4 % (10.0-50.0); Mean Corpuscular Hemoglobin 32.4 pg (28.0-32.0); Mean Corpuscular Hgb Conc. 33.6 g/dL (32.0-36.0); Mean Corpuscular Volume 96.5 fL (80.0-100.0); Mean Platelet Volume 9.3 fL (7.4-10.4); Monocytes # (auto) 0.3 uL; Neutrophils # (auto) 3.1 uL; Neutrophils % (auto) 73.2 % (37.0-80.0); Platelet Count (auto) 102 10^3/uL (140-450); Red Cell Distribution Width 18.5 % (11.6-16.0); White Blood Cell 4.3 10^3/uL (4.4-10.8)
[2017-01-03 06:43] LABS: Calcium 7.4 mg/dL (8.5-10.1); Magnesium 1.8 mg/dL (1.6-2.6); Potassium 3.5 mmol/L (3.5-5.1)
[2017-01-03 07:00] LABS: BUN/Creatinine Ratio 25.4
[2017-01-03] MEDS: HYDROcodone-ACET 5/325MG TAB PO PRN (07:19)
[2017-01-03] MEDS: IPRATROPIUM BROM 0.5 MG/2.5ML INH SOL NEB SCH ×4 (07:31→18:00)
[2017-01-03] MEDS: ALBUTEROL SULF 2.5 MG/0.5ML(0.5%) NEB SOLN NEB SCH ×4 (07:31→18:00)
[2017-01-03] MEDS ORDERED: MAGNESIUM SULFATE 1GM/100ML 100 ML IV ONE (09:15)
[2017-01-03] MEDS: ENOXAPARIN SOD 30 MG/0.3 ML SYRINGE SC SCH (09:58)
[2017-01-03] MEDS: SOD CHL 0.45% 1,000 ML IV SCH (10:18)
[2017-01-03] MEDS: ASPirin-EC 81 mg tab PO SCH (10:19)
[2017-01-03] MEDS: LEVOFLOXACIN 500MG 100 ML IV SCH (10:37)
[2017-01-03] MEDS: PANTOPRAZOLE SODIUM 40 MG/10 ML VIAL IV SCH (10:37)
[2017-01-03] MEDS: METOPROLOL TARTRATE 25 MG TAB PO SCH ×2 (10:38→22:00)
[2017-01-03] MEDS: NIFEdipine ER 30 MG TAB PO SCH (10:39)
[2017-01-03] MEDS: CITALOPRAM HYDROBR 20 MG TAB PO SCH (10:39)
[2017-01-03] MEDS: FLUCONAZOLE 100MG/50ML 50 ML IV SCH (10:50)
[2017-01-03] MEDS ORDERED: SOD CHL 0.45% 1,000 ML IV SCH (20:00)
[2017-01-03] MEDS: ATORVASTATIN 20 MG TAB PO SCH (22:00)
[2017-01-04 00:30] VITALS: BP 120/62
[2017-01-04] MEDS: PANTOPRAZOLE SODIUM 40 MG/10 ML VIAL IV SCH ×2 (01:31→09:21)
[2017-01-04] MEDS: ALBUMIN 25% 50 ML IV SCH ×2 (01:34→05:33)
[2017-01-04 05:00] VITALS: BP 134/66
[2017-01-04 06:23] LABS: Hematocrit 23.8 % (36.0-46.0); Hemoglobin 8.4 g/dL (12.2-16.2)
[2017-01-04] MEDS: LEVOTHYROXINE SODIUM 25 MCG TAB PO SCH (06:28)
[2017-01-04 06:42] LABS: Calcium 7.7 mg/dL (8.5-10.1); Magnesium 1.8 mg/dL (1.6-2.6); Potassium 3.4 mmol/L (3.5-5.1)
[2017-01-04 06:44] LABS: BUN/Creatinine Ratio 23.5
[2017-01-04] MEDS: FLUCONAZOLE 100MG/50ML 50 ML IV SCH (09:18)
[2017-01-04] MEDS: ENOXAPARIN SOD 30 MG/0.3 ML SYRINGE SC SCH (09:21)
[2017-01-04] MEDS: CITALOPRAM HYDROBR 20 MG TAB PO SCH (09:22)
[2017-01-04] MEDS: METOPROLOL TARTRATE 25 MG TAB PO SCH (09:24)
[2017-01-04] MEDS: NIFEdipine ER 30 MG TAB PO SCH (09:24)
[2017-01-04] MEDS: ASPirin-EC 81 mg tab PO SCH (09:25)
[2017-01-04] MEDS: LEVOFLOXACIN 500MG 100 ML IV SCH (10:15)
[2017-01-04 13:00] VITALS: BP 141/65
[2017-01-04] MEDS ORDERED: POTASSIUM CHL 20 Meq TABLET PO ONE (13:00)
[2017-01-04] MEDS ORDERED: MAGNESIUM SULFATE 1GM/100ML 100 ML IV ONE (13:00)
[2017-01-04] MEDS ORDERED: FLORASTOR (S. BOULARDII) 250 MG CAP PO SCH (13:15)
[2017-01-04] MEDS ORDERED: CARBIDOPA W LEVODOPA 25/100mg TABLET PO SCH (14:00)
[2017-01-04 16:47] VITALS: BP 124/59
[2017-01-04] MEDS ORDERED: BOOST PLUS 8 ounce PO SCH (18:00)
[2017-01-05] MEDS ORDERED: LEVOFLOXACIN 500 MG TAB PO SCH (10:00)
[2017-01-05] MEDS ORDERED: PANTOPRAZOLE 40 MG TAB PO SCH (10:00)
[2017-01-05] MEDS ORDERED: FLUCONAZOLE 100 MG TAB PO SCH (10:00)
== END 2017-01-04 19:00 | DRG 720 ==
LOC: EDBD 11:17 → ER 11:17 → TELE 11:18 → DOU IN ICU 12-31 22:01 → TELE-CENTR 01-03 11:51
PROVIDERS: ADMIT Internal Medicine; ATTEND Internal Medicine
PROC: 30233N1 Transfusion of Nonautologous Red Blood Cells into Peripheral Vein, Percutaneous Approach (ICD-10-PCS; principal; 2017-01-03)
DX: A41.9 Sepsis, unspecified organism (principal); N17.0 Acute kidney failure with tubular necrosis; J69.0 Pneumonitis due to inhalation of food and vomit; E43 Unspecified severe protein-calorie malnutrition; I50.33 Acute on chronic diastolic (congestive) heart failure; E11.21 Type 2 diabetes mellitus with diabetic nephropathy; D69.6 Thrombocytopenia, unspecified; E87.0 Hyperosmolality and hypernatremia; I13.0 Hypertensive heart and chronic kidney disease with heart failure and stage 1 through stage 4 chronic kidney disease, or unspecified chronic kidney disease; N39.0 Urinary tract infection, site not specified; E11.22 Type 2 diabetes mellitus with diabetic chronic kidney disease; J98.11 Atelectasis; I70.0 Atherosclerosis of aorta; E87.6 Hypokalemia; N18.3 Chronic kidney disease, stage 3 (moderate); E78.5 Hyperlipidemia, unspecified; M81.0 Age-related osteoporosis without current pathological fracture; D63.8 Anemia in other chronic diseases classified elsewhere; E03.9 Hypothyroidism, unspecified; F32.9 Major depressive disorder, single episode, unspecified; E11.65 Type 2 diabetes mellitus with hyperglycemia; F41.9 Anxiety disorder, unspecified; D32.0 Benign neoplasm of cerebral meninges; Z82.49 Family history of ischemic heart disease and other diseases of the circulatory system; Z83.3 Family history of diabetes mellitus; Z86.73 Personal history of transient ischemic attack (TIA), and cerebral infarction without residual deficits; Z87.11 Personal history of peptic ulcer disease; Z90.49 Acquired absence of other specified parts of digestive tract; Z91.19 Patient's noncompliance with other medical treatment and regimen; Z68.1 Body mass index [BMI] 19.9 or less, adult; Z93.2 Ileostomy status; Z82.61 Family history of arthritis
CPT/HCPCS: 36415; 51702; 71010; 71250; 74176; 74250; 80048; 80053; 80061; 81001; 82040; 82150; 82270; 82306; 82962; 83036; 83540; 83550; 83605; 83690; 83735; 83880; 84100; 84443; 84484; 85014; 85018; 85025; 85610; 85730; 86850; 86900; 86901; 86920; 87040; 87086; 87088; 87186; 87493; 92610; 93005; 93971; 94640; 94761; 96361; 96365; 96372; 96375; C9113; J0696; J1450; J1815; J1956; J2405; J2543; J3480; J3490